=== PATIENT | female | born 2005 | race Caucasian/White ===

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

== ENCOUNTER 2025-07-16 13:41 | Emergency (ER) | payer BC, SELFPAY ==
--- OUTSIDE RECORDS SUMMARY | 2025-07-16 13:49 | XMS_ITS | Encounter Summary ---
Author Organization [facility] Address [address] [facility] [place] [address] Care Team Providers Care Seaman Officer Name Role Phone Gretta Roque MD Primary Care Provider [phone] Marce Robert MD Primary Care Provider [phone] Adali Robert LPN Primary Care Provider Marce Robert MD Primary Care Provider [phone] Reason for Visit * Reason Onset Date Comments MEDICATION REFILL 07/12/2014 Encounter Details Date Type Department Care Team (Late Contact Info) Description 07/12/2014 Refill [facility] - Diabetes [address] [address] Clark Watson, [facility] [place] [address] MEDICATION REFILL Social History Tobacco Use Types Packs/Day Years Used Date Smoking Tobacco: Never Assessed Alcohol Use Standard Drinks/Week Comments No 0 (1 standard drink = 0.6 oz pur e alcohol) Comments Unknown Sex and Gender Information Value Date Recorded Sex Assigned at Not on file Legal Sex Female 7:33 AM SUBASSEMBLER Gender Identity Not on file Sexual Orientation Not on file documented as of this encounter Plan of Treatment Upcoming Encounters Date Type Department Care Team (Late Contact Info) Description 08/06/2025 1:40 PM SUBASSEMBLER Office Visit [facility] - Endocrinology [address] [place] [address], [place] [phone] Faith Wallace MD [address] [place] [address] [address] [facility] [place] [address] documented as of this encounter Visit Diagnoses Not on filedocumented in this encounter Care Teams Seaman Officer Relationship Specialty Start Date End Date Gretta Roque MD [address] [facility] [address] [place] [phone] PCP - General Pediatrics 01/30/14 09/22/17 Marce Robert MD [address] [facility] [address] [place] [address] PCP - General Pediatrics 09/23/17 01/11/18 Adali Robert LPN [address] [place] [address] PCP - General 01/12/18 04/17/18 Marce Robert MD [address] [facility] [address] [place] [address] PCP - General 04/18/18 documented as of this encounter
--- OUTSIDE RECORDS SUMMARY | 2025-07-16 13:49 | XMS_ITS | Encounter Summary ---
Author Organization [facility] Address [address] [place] [address] Care Team Providers Care Bending Press Operator Name Role Phone Marce Robert MD Primary Care Provider [phone] Encounter Details Date Type Department Care Team (Late st Contact Info) Description 04/21/2019 Telephone [facility] Pediatrics - Diabetes [address] [address] Clark Watson, EXECUTIVE SECRETARY-JUNIOR PROJECT MANAGER 1 [place] [phone] Social History Tobacco Use Types Packs/Day Years Used Date Smoking Tobacco: Passive Smo ke Exposure - Never Smoker Smokeless Tobacco: Never Alcohol Use Standard Drinks/Week Comments No 0 (1 standard drink = 0.6 oz pur e alcohol) Comments No Sex and Gender Information Value Date Recorded Sex Assigned at Not on file Legal Sex Female 7:33 AM LUMBER DRIVER Gender Identity Not on file Sexual Orientation Not on file documented as of this encounter Functional Status * Is person deaf or have serious hearing difficulty? Answer Date of Assessment Author No 01/03/2015 4:15 PM Marshall Mcneal RN * Is person blind or have serious difficulty seeing? Answer Date of Assessment Author No 01/03/2015 4:15 PM Marshall Mcneal RN * Does person have serious difficulty walking/climbing stairs? Answer Date of Assessment Author No 01/03/2015 4:15 PM CDT Marshall Beach RN * Does person have difficulty dressing/bathing? Answer Date of Assessment Author No 01/03/2015 4:15 PM CDT [place] RN * Does person have difficulty doing errands alone? Answer Date of Assessment Author No 01/03/2015 4:15 PM CDT [place] RN documented as of this encounter Mental Status * Does person have difficulty concentrating/remembering/making decisions? Answer Entry Date Author No 01/03/2015 4:15 PM CDT [place] RN documented in this encounter Miscellaneous Notes * Telephone Encounter - Lissette Hoyt RN - 04/21/2019 12:07 PM CDT School letter sent. documented in this encounter Plan of Treatment Upcoming Encounters Date Type Department Care Team (Late st Contact Info) Description 08/06/2025 1:40 PM LUMBER DRIVER [facility] Endocrinology [address] [place] [address], [place] [address] Faith Wallace MD [address] [place] [address] [place] [phone] documented as of this encounter Visit Diagnoses Not on filedocumented in this encounter Care Teams Bending Press Operator Relationship Specialty Start Date End Date Marce Robert MD [address] [facility] [address] [place] [address] PCP - General 04/18/18 documented as of this encounter
--- OUTSIDE RECORDS SUMMARY | 2025-07-16 13:49 | XMS_ITS | Encounter Summary ---
Author Organization [facility] Address [address] [facility] [address] Care Team Providers Care Career Development Consultant Name Role Phone Marce Robert MD Primary Care Provider [phone] Encounter Details Date Type Department Care Team (Late st Contact Info) Description 07/13/2018 Telephone [facility] Pediatrics - Diabetes [address] [address] Telma Acevedo RN Social History Tobacco Use Types Packs/Day Years Used Date Smoking Tobacco: Passive Smo ke Exposure - Never Smoker Smokeless Tobacco: Never Alcohol Use Standard Drinks/Week Comments No 0 (1 standard drink = 0.6 oz pur e alcohol) Comments No Sex and Gender Information Value Date Recorded Sex Assigned at Not on file Legal Sex Female 7:33 AM TRACK LAYER Gender Identity Not on file Sexual Orientation [...] Marshall Mcneal RN * Does person have difficulty dressing/bathing? Answer Date of Assessment Author No 01/03/2015 4:15 PM Marshall Mcneal RN * Does person have difficulty doing errands alone? Answer Date of Assessment Author No 01/03/2015 4:15 PM Marshall Mcneal RN documented as of this encounter Mental Status * Does person have difficulty concentrating/remembering/making decisions? Answer Entry Date Author No 01/03/2015 4:15 PM Marshall Mcneal RN documented in this encounter Plan of Treatment Upcoming Encounters Date Type Department Care Team (Late st Contact Info) Description 08/06/2025 1:40 PM TRACK LAYER Office Visit [facility] - Endocrinology [address] [place] [address], [place] [address] Faith Wallace MD [address] [place] [address] [place] [address] documented as of this encounter Procedures Procedure Name Priority Date/Time Associated Diagnosis Comments HEMOGLOBIN A1C Routine 07/16/2018 11:20 AM TRACK LAYER Type 1 diabetes mellitus without complication documented in this encounter Results * (ABNORMAL) HEMOGLOBIN A1C - Performed by LAB (07/16/2018 11:20 AM TRACK LAYER) Hemoglobin A1c 9.0(H) <5.7 % of total Hgb [facility] Comment: For someone without known diabetes, a hemoglobin A1c value of 6.5% or greater indicates that they may have diabetes and this should be confirmed with a follow-up test. For someone with known diabetes, a value <7% indicates that their diabetes is well controlled and a value greater than or equal to 7% indicates suboptimal control. A1c targets should be individualized based on duration of diabetes, age, comorbid conditions, and other considerations. Currently, no consensus exists regarding use of hemoglobin A1c for diagnosis of diabetes for children. Test Performed at: [facility] [id number] [place] [address] MARLENE HERNÁNDEZ DO,MPH Blood BLOOD SPECIMEN / Unknown 07/16/2018 11:20 AM TRACK LAYER 07/16/2018 11:21 AM TRACK LAYER Torrey Washington MD LAB - CHEMISTRY ORDERABLES F inal Result [facility] [address] [place] [address] documented in this encounter Visit Diagnoses Diagnosis Type 1 diabetes mellitus without complication (HCC)- Primary Type I (juvenile type) diabetes mellitus without mention of complication, not stated as uncontrolled documented in this encounter Care Teams Career Development Consultant Relationship Specialty Start Date End Date Marce Robert MD [address] [facility] [address] [place] [address] PCP - General 04/18/18 documented as of this encounter
--- OUTSIDE RECORDS SUMMARY | 2025-07-16 13:50 | XMS_ITS | Encounter Summary ---
Author Organization [facility] Address [address] [facility] [place] [address] Care Team Providers Care Interlocking Pavement Installer Name Role Phone Gretta Roque MD Primary Care Provider [phone] Marce Robert MD Primary Care Provider [phone] Adali Robert LPN Primary Care Provider [phone] Marce Robert MD Primary Care Provider [phone] Reason for Visit * Reason Onset Date Comments MEDICATION REFILL 04/10/2015 Encounter Details Date Type Department Care Team (Late st Contact Info) Description 04/10/2015 Refill [facility] - Diabetes [address] [place] [address] Clark Watson APRN-REACTOR OPERATOR 1 [place] [address] MEDICATION REFILL Social History Tobacco Use Types Packs/Day Years Used Date Smoking Tobacco: Passive Smo ke Exposure - Never Smoker Alcohol Use Standard Drinks/Week Comments No 0 (1 standard drink = 0.6 oz pur e alcohol) Comments No Sex and Gender Information Value Date Recorded Sex Assigned at Not on file Legal Sex Female 7:33 AM CASH ACCOUNTING CLERK Gender Identity Not on file Sexual Orientation [...] st Contact Info) Description 08/06/2025 1:40 PM CASH ACCOUNTING CLERK Office Visit [facility] - Endocrinology [address] [place] [address], [place] [phone] Faith Wallace MD [address] [place] [phone] documented as of this encounter Visit Diagnoses Not on filedocumented in this encounter Care Teams Interlocking Pavement Installer Relationship Specialty Start Date End Date Gretta Roque MD [address] [place] [address] [place] [phone] PCP - General Pediatrics 01/30/14 09/22/17 Marce Robert MD [address] [facility] [address] [place] [address] PCP - General Pediatrics 09/23/17 01/11/18 Adali Robert LPN [address] [place] [address] PCP - General 01/12/18 04/17/18 Marce Robert MD [address] [facility] [address] [place] [address] PCP - General 04/18/18 documented as of this encounter
--- OUTSIDE RECORDS SUMMARY | 2025-07-16 13:50 | XMS_ITS | Encounter Summary ---
Author Organization [facility] Address [address] [facility] [place] [address] Care Team Providers Care Information Clerk Brokerage Name Role Phone Marce Robert MD Primary Care Provider [phone] Encounter Details Date Type Department Care Team (Late st Contact Info) Description 11/09/2023 Telephone [facility] Pediatrics - Diabetes [address] [address] Lizzy Leach Social History Tobacco Use Types Packs/Day Years Used Date Smoking Tobacco: Never Passive Smoke Exposure: Yes Smokeless Tobacco: Never Alcohol Use Standard Drinks/Week Comments No 0 (1 standard drink = 0.6 oz pur e alcohol) PHQ-2 Answer Date Recorded Patient Health Questionnaire-2 Score 4 07/23/2020 Comments No Sex and Gender Information Value Date Recorded Sex Assigned at Not on file Legal Sex Female 7:33 AM ELECTION JUDGE Gender Identity Not on file Sexual Orientation [...] Marshall Mcneal RN documented in this encounter Miscellaneous Notes * Telephone Encounter - Juliet Still RN - 11/09/2023 11:36 AM ELECTION JUDGE They called to verify prescription for lantus for pens or vial. Verfied that the Prescription had been requested for a vial to use to dose for insulin pump malfunction. TION JUDGE TION JUDGE documented in this encounter Plan of Treatment Upcoming Encounters Date Type Department Care Team (Late st Contact Info) Description 08/06/2025 1:40 PM ELECTION JUDGE Office Visit [facility] - Endocrinology [address] [place] [address], [place] [address] Faith Wallace MD [address] [place] [address] [place] [phone] documented as of this encounter Visit Diagnoses Not on filedocumented in this encounter Care Teams Information Clerk Brokerage Relationship Specialty Start Date End Date Marce Robert MD [address] [facility] [address] [place] [address] PCP - General 04/18/18 documented as of this encounter
--- OUTSIDE RECORDS SUMMARY | 2025-07-16 13:50 | XMS_ITS | Encounter Summary ---
Author Organization [facility] Address [address] [facility] [place] [address] Care Team Providers Care Ship Design Teacher Name Role Phone Marce Robert MD Primary Care Provider [phone] Reason for Visit * Reason Comments Refill Request Encounter Details Date Type Department Care Team (Late st Contact Info) Description 07/09/2025 Refill [facility] Pediatrics - Endocrinology [address] [place] [address] Alex Hung MD [facility] [place] [address] Refill Request Social History Tobacco Use Types Packs/Day Years [...] on file Legal Sex Female 7:33 AM INSPECTOR AND HAND PACKAGER Gender Identity Not on file Sexual Orientation [...] st Contact Info) Description 08/06/2025 1:40 PM INSPECTOR AND HAND PACKAGER Office Visit [facility] - Endocrinology [address] [place] [address], [place] [address] Faith Wallace MD [address] [place] [address] [place] [address] documented as of this encounter Visit Diagnoses Diagnosis Controlled diabetes mellitus type 1 without complications (HCC) documented in this encounter Care Teams Ship Design Teacher Relationship Specialty Start Date End Date Marce Robert MD [address] [facility] [address] [place] [address] PCP - General 04/18/18 documented as of this encounter
--- OUTSIDE RECORDS SUMMARY | 2025-07-16 13:50 | XMS_ITS | Encounter Summary ---
Author Organization [facility] Address [address] [facility] [place] [address] Care Team Providers Care It Solutions Architect Name Role Phone Gretta Roque MD Primary Care Provider Marce Robert MD Primary Care Provider [phone] Adali Robert LPN Primary Care Provider [phone] Marce Robert MD Primary Care Provider [phone] Encounter Details Date Type Department Care Team (Late st Contact Info) Description 03/30/2017 Telephone [facility] Pediatrics - Diabetes [address] [address] Torrey Washington MD [address] [place] [phone] Social History Tobacco Use Types Packs/Day Years Used Date Smoking Tobacco: Passive Smo ke Exposure - Never Smoker Alcohol Use Standard Drinks/Week Comments No 0 (1 standard drink = 0.6 oz pur e alcohol) Comments No Sex and Gender Information Value Date Recorded Sex Assigned at Not on file Legal Sex Female 7:33 AM PLACEMENT SECRETARY Gender Identity Not on file Sexual Orientation [...] st Contact Info) Description 08/06/2025 1:40 PM PLACEMENT SECRETARY Office Visit [facility] - Endocrinology [address] [place] [address], [place] [phone] Faith Wallace MD [address] [place] [address] [place] [phone] documented as of this encounter Visit Diagnoses Not on filedocumented in this encounter Care Teams It Solutions Architect Relationship Specialty Start Date End Date Gretta Roque MD [address] [place] [address] [place] [phone] PCP - General Pediatrics 01/30/14 09/22/17 Marce Robert MD [address] [facility] [address] [place] [address] PCP - General Pediatrics 09/23/17 01/11/18 Adali Robert LPN [address] [place] [address] PCP - General 01/12/18 04/17/18 Marce Robert MD [address] [facility] [address] [place] [address] PCP - General 04/18/18 documented as of this encounter
--- OUTSIDE RECORDS SUMMARY | 2025-07-16 13:50 | XMS_ITS | Encounter Summary ---
Author Organization [facility] Address [address] [facility] [place] [address] Care Team Providers Care Digital Advertising Specialist Name Role Phone Marce Robert MD Primary Care Provider [phone] Encounter Details Date Type Department Care Team (Late st Contact Info) Description 10/16/2020 Telephone [facility] Pediatrics - Endocrinology [facility] [place] [address] Clark Watson, BACKBREAKER-HAIR COLORIST 1 [place] [phone] Social History Tobacco Use Types Packs/Day Years [...] on file Legal Sex Female 7:33 AM CLINICAL DENTAL TECHNICIAN Gender Identity Not on file Sexual Orientation [...] of Assessment Author No 01/03/2015 4:15 PM WILLT [place] RN * Does person have difficulty doing errands alone? Answer Date of Assessment Author No 01/03/2015 4:15 PM WILLT [place] RN documented as of this encounter Mental Status * Does person have difficulty concentrating/remembering/making decisions? Answer Entry Date Author No 01/03/2015 4:15 PM WILLT [place] RN documented in this encounter Miscellaneous Notes * Telephone Encounter - Lissette Hoyt RN - 10/16/2020 2:40 PM CST Received a form stating a PA is needed for her Dexcom. I contacted [facility] directly at [phone]. They are faxing over the new form that needs to be completed. ICAL DENTAL TECHNICIAN documented in this encounter Plan of Treatment Upcoming Encounters Date Type Department Care Team (Late st Contact Info) Description 08/06/2025 1:40 PM CLINICAL DENTAL TECHNICIAN Office Visit [facility] - Endocrinology [address] [place] [address], [place] [address] Faith Wallace MD [address] [place] [address] [address] [facility] [place] [phone] documented as of this encounter Visit Diagnoses Not on filedocumented in this encounter Care Teams Digital Advertising Specialist Relationship Specialty Start Date End Date Marce Robert MD [address] [facility] [address] [place] [address] PCP - General 04/18/18 documented as of this encounter
--- OUTSIDE RECORDS SUMMARY | 2025-07-16 13:50 | XMS_ITS | Encounter Summary ---
Author Organization [facility] Address [address] [facility] [place] [address] Care Team Providers Care Jar Capper Name Role Phone Marce Robert MD Primary Care Provider [phone] Reason for Visit * Reason Onset Date Comments Letter for School or Work 08/08/2019 Encounter Details Date Type Department Care Team (Late st Contact Info) Description 08/08/2019 Telephone [facility] Pediatrics - Diabetes [address] [address] Clark Watson APRN-[address] [address] Letter for School or Work Social History Tobacco Use Types Packs/Day Years Used Date Smoking Tobacco: Passive Smo ke Exposure - Never Smoker Smokeless Tobacco: Never Alcohol Use Standard Drinks/Week Comments No 0 (1 standard drink = 0.6 oz pur e alcohol) Comments No Sex and Gender Information Value Date Recorded Sex Assigned at Not on file Legal Sex Female 7:33 AM APPRAISER ART Gender Identity Not on file Sexual Orientation Not on file documented as of this encounter Functional Status * Is person deaf or have serious hearing difficulty? Answer Date of Assessment Author No 01/03/2015 4:15 PM Marshall Mcneal RN * Is person blind or have serious difficulty seeing? Answer Date of Assessment Author No 01/03/2015 4:15 PM CDT Yong, Marshall R, RN * Does person have serious difficulty [...] encounter Miscellaneous Notes * Telephone Encounter - Drew Nieves RN - 08/08/2019 10:44 AM CST I returned mom's call, she left a message asking for careplan indicating 1:5 at lunch, zohra of 1 q 50>150 and bathroom breaks and water bottle ad georgie. I called and spoke with mom, as last note indicated lunch was changed to 1:4. Mom said she had lows with that dose so they changed it back. She received a lunch long-term for gong to the bathroom last week. Advised have her use discretion and don't abuse it to get out of class, but it's appropriate to have ad georgie breaks so I will add it to theletter, along with the water bottle. AISER ART documented in this encounter Plan of Treatment Upcoming Encounters Date Type Department Care Team (Late st Contact Info) Description 08/06/2025 1:40 PM APPRAISER ART Office Visit [facility] - Endocrinology [address] [place] [address], [place] [address] Faith Wallace MD [address] [place] [address] [place] [address] documented as of this encounter Visit Diagnoses Not on filedocumented in this encounter Care Teams Jar Capper Relationship Specialty Start Date End Date Marce Robert MD [address] [facility] [place] [address] PCP - General 04/18/18 documented as of this encounter
--- OUTSIDE RECORDS SUMMARY | 2025-07-16 13:50 | XMS_ITS | Encounter Summary ---
Author Organization [facility] Address [address] [place] [address] Care Team Providers Care Grip Assembler Name Role Phone Gretta Roque MD Primary Care Provider [phone] Marce Robert MD Primary Care Provider [phone] Adali Robert LPN Primary Care Provider [phone] Marce Robert MD Primary Care Provider [phone] Reason for Visit * Reason Onset Date Comments Request Lab Order 05/15/2015 Please send la b orders for appt on 05/20 to [facility] in [place]. Encounter Details Date Type Department Care Team (Late st Contact Info) Description 05/15/2015 Telephone [facility] - Diabetes [address] [place] [place] [address] Clark Watson, KEVIN-APPRENTICE ELECTRICIAN 1 [place] [address] Request Lab Order (Please send lab orders for appt on 05/20 to [facility] in [place]. ) Social History Tobacco Use Types Packs/Day Years Used Date Smoking Tobacco: Passive Smo ke Exposure - Never Smoker Alcohol Use Standard Drinks/Week Comments No 0 (1 standard drink = 0.6 oz pur e alcohol) Comments No Sex and Gender Information Value Date Recorded Sex Assigned at Not on file Legal Sex Female 7:33 AM SOFTWARE QUALITY ENGINEER Gender Identity Not on file Sexual Orientation [...] st Contact Info) Description 08/06/2025 1:40 PM SOFTWARE QUALITY ENGINEER Office Visit [facility] - Endocrinology [address] [place] [address], [place] [address] Faith Wallace MD [address] [place] [address] [place] [address] documented as of this encounter Visit Diagnoses Not on filedocumented in this encounter Care Teams Grip Assembler Relationship Specialty Start Date End Date Gretta Roque MD [address] [facility] [address] [place] [phone] PCP - General Pediatrics 01/30/14 09/22/17 Marce Robert MD [address] [facility] 159 [place] [address] PCP - General Pediatrics 09/23/17 01/11/18 Adali Robert LPN [address] [place] [address] PCP - General 01/12/18 04/17/18 Marce Robert MD [address] [facility] 159 [place] [address] PCP - General 04/18/18 documented as of this encounter
--- OUTSIDE RECORDS SUMMARY | 2025-07-16 13:50 | XMS_ITS | Encounter Summary ---
Author Organization [facility] Address [address] [place] [address] Care Team Providers Care Captain Waiter/Waitress Name Role Phone Gretta Roque MD Primary Care Provider [phone] Marce Robert MD Primary Care Provider [phone] Adali Robert LPN Primary Care Provider [phone] Marce Robert MD Primary Care Provider [phone] Reason for Visit * Reason Onset Date Comments MEDICATION REFILL 03/12/2017 Encounter Details Date Type Department Care Team (Late st Contact Info) Description 03/12/2017 Refill [facility] Pediatrics - Endocrinology [address] [place] [address] Torrey Washington MD [address] [place] [address] MEDICATION REFILL Social History Tobacco Use Types Packs/Day Years Used Date Smoking Tobacco: Passive Smo ke Exposure - Never Smoker Alcohol Use Standard Drinks/Week Comments No 0 (1 standard drink = 0.6 oz pur e alcohol) Comments No Sex and Gender Information Value Date Recorded Sex Assigned at Not on file Legal Sex Female 7:33 AM CUSTOMER ACCOUNT MANAGER Gender Identity Not on file Sexual Orientation [...] [place] RN * Does person have serious difficulty [...] st Contact Info) Description 08/06/2025 1:40 PM CUSTOMER ACCOUNT MANAGER Office Visit [facility] - Endocrinology [address] [place] [address], [place] [address] Faith Wallace MD [address] [place] [phone] documented as of this encounter Visit Diagnoses Diagnosis Controlled diabetes mellitus type 1 without complications (HCC) documented in this encounter Care Teams Captain Waiter/Waitress Relationship Specialty Start Date End Date Gretta Roque MD 2 [facility] [address] [place] [address] PCP - General Pediatrics 01/30/14 09/22/17 Marce Robert MD [address] [facility] [address] [place] [address] PCP - General Pediatrics 09/23/17 01/11/18 Adali Robert LPN [address] [place] [address] PCP - General 01/12/18 04/17/18 Marce Robert MD [address] [facility] [address] [place] [address] PCP - General 04/18/18 documented as of this encounter
--- OUTSIDE RECORDS SUMMARY | 2025-07-16 13:50 | XMS_ITS | Encounter Summary ---
Author Organization [facility] Address [address] [facility] [place] [address] Care Team Providers Care Engine Lathe Tender Name Role Phone Marce Robert MD Primary Care Provider [phone] Encounter Details Date Type Department Care Team (Late st Contact Info) Description 04/22/2020 Telephone [facility] Pediatrics - Endocrinology [facility] [place] [address] Clark Watson, MAXILLOFACIAL PROSTHODONTIST-ATLASSIAN ADMINISTRATOR 1 [place] [phone] Social History Tobacco Use Types Packs/Day Years Used Date Smoking Tobacco: Passive Smo ke Exposure - Never Smoker Smokeless Tobacco: Never Alcohol Use Standard Drinks/Week Comments No 0 (1 standard drink = 0.6 oz pur e alcohol) Comments No Sex and Gender Information Value Date Recorded Sex Assigned at Not on file Legal Sex Female 7:33 AM MANAGER CONSUMER Gender Identity Not on file Sexual Orientation Not on file COVID-19 Exposure Response Date Recorded In the last month, have you been in contact with someone who was confirmed or suspected to have Coronavirus / COVID-19? No / Unsure 04/22/2020 9:19 AM CDT documented as of this encounter Functional Status * Is person deaf or have serious hearing difficulty? Answer Date of Assessment Author No 01/03/2015 4:15 PM CDT [place] RN * Is person blind or have [...] st Contact Info) Description 08/06/2025 1:40 PM MANAGER CONSUMER Office Visit [facility] - Endocrinology [address] [place] [address], [place] [address] Faith Wallace MD [address] [place] [address] [address] [place] [address] documented as of this encounter Visit Diagnoses Not on filedocumented in this encounter Care Teams Engine Lathe Tender Relationship Specialty Start Date End Date Marce Robert MD [address] [facility] 159 [place] [address] PCP - General 04/18/18 documented as of this encounter
--- OUTSIDE RECORDS SUMMARY | 2025-07-16 13:50 | XMS_ITS | Encounter Summary ---
Author Organization [facility] Address [address] [place] [address] Care Team Providers Care Dental Laboratory Technician Apprentice Name Role Phone Marce Robert MD Primary Care Provider [phone] Reason for Visit * Reason Onset Date Comments MEDICATION REFILL 01/15/2022 Encounter Details Date Type Department Care Team (Late st Contact Info) Description 01/15/2022 Refill [facility] Pediatrics - Diabetes [address] [phone] Alex Hung MD [address] [place] [address] MEDICATION REFILL Social History Tobacco Use Types [...] on file Legal Sex Female 7:33 AM KNITTER HAND Gender Identity Not on file Sexual Orientation Not on file COVID-19 Exposure Response Date Recorded In the last 10 days, have yo u been in contact with someone who was confirmed or suspected to have Coronavirus/COVID-19? No / Unsure 12/22/2021 1:01 PM CDT documented as of this encounter Functional [...] st Contact Info) Description 08/06/2025 1:40 PM KNITTER HAND Office Visit [facility] - Endocrinology [address] [place] [address], [place] [address] Faith Wallace MD [address] [place] [address] [place] [address] documented as of this encounter Visit Diagnoses Not on filedocumented in this encounter Care Teams Dental Laboratory Technician Apprentice Relationship Specialty Start Date End Date Marce Robert MD [address] [facility] [place] [address] PCP - General 04/18/18 documented as of this encounter
--- OUTSIDE RECORDS SUMMARY | 2025-07-16 13:50 | XMS_ITS | Encounter Summary ---
Author Organization [facility] Address [address] [facility] [place] [address] Care Team Providers Care Science Writer Name Role Phone Marce Robert MD Primary Care Provider [phone] Encounter Details Date Type Department Care Team (Late st Contact Info) Description 02/05/2022 Telephone [facility] Pediatrics - Diabetes [address] [address] Alex Hung MD [address] [place] [phone] Social History Tobacco Use Types Packs/Day Years [...] on file Legal Sex Female 7:33 AM BLANKET WINDER OPERATOR Gender Identity Not on file Sexual Orientation [...] encounter Miscellaneous Notes * Telephone Encounter - Giana Chirinos RN - 02/05/2022 9:35 AM CDT Images from the original note were not included. Diabetes Sick Call Patient: Betsey Camejo Date: 02/05/2022 Current Blood Glucose: HIGH per dexcom, extreme high blood sugar >600 per meter Current Ketone result: large Last insulin given: Novolog: Dose 28 units for correction and breakfast Time 0750 Symptoms: tired Recent Illness: has an infection on her arm so Urgent Care started her on steroids, prednisone on Wednesday afternoon (see Dexcom below) Plan: Talked with NANCIE Arizmendi to review plan Push sugar free fluid. Recheck blood glucose and urine ketones in two hours at 1150. Change pump site now and administer 9 units at 0950. Miscellaneous: Dad called and left voicemail to review bgs since started Tandem pump yesterday and mentioned she has had high blood sugars and ketones. Called dad back right away to get an update. Dad is at work right now, Betsey is at home (mom is sleeping since she works scene shifter). Johanna three-way called Betsey into the phone call. Was seen yesterday to start new pump, however dad states they started the pump on their own a week prior to the pump start since they already had been on a pump they felt comfortable starting. Dad did not call once they started their pump on their own. Had talked with TIM Kelly and TIM Russell from [facility] about them starting pump on their own. See Dexcom below. Having highs throughout the day and night since starting the steroids. No changesmade at this moment since large ketones. Instructed family to give the 9 units now with new pump site. In two hours to call us back and we will see what bgs and ketones are at that time and can look at making dose adjustments. INSULIN PUMP Tandem T-Slim BASAL RATES TIME Units/hr 0000 0.9 TOTAL Basal for 24 hours CARB RATIO TIME 1 unit per____grams of carbohydrates 0000 9 0400 5 0600 5 1100 9 1600 10 2200 10 SENSITIVITY TIME 1 unit of insulin lowers BG mg/dL 0000 50 TARGET TIME Target Blood Glucose 0000 110 documented in this encounter Plan of Treatment Upcoming Encounters Date Type Department Care Team (Late st Contact Info) Description 08/06/2025 1:40 PM BLANKET WINDER OPERATOR Office Visit [facility] - Endocrinology [address] [place] [address], [place] [phone] Faith Wallace MD [address] [place] [address] [place] [phone] documented as of this encounter Visit Diagnoses Not on filedocumented in this encounter Care Teams Science Writer Relationship Specialty Start Date End Date Marce Robert MD [address] [facility] [address] [place] [address] PCP - General 04/18/18 documented as of this encounter
--- OUTSIDE RECORDS SUMMARY | 2025-07-16 13:50 | XMS_ITS | Encounter Summary ---
Author Organization [facility] Address [address] [place] [address] Care Team Providers Care Payroll Administrator Name Role Phone Gretta Roque MD Primary Care Provider [phone] Gretta Roque MD Primary Care Provider [phone] Marce Robert MD Primary Care Provider [phone] Adali Robert DISPLAY MAKER Primary Care Provider [phone] Marce Robert MD Primary Care Provider [phone] Reason for Visit * Reason Onset Date Comments Update 03/30/2012 Cannot get in co ntact with patients mother, will try a few more times, then place RX on hold Encounter Details Date Type Department Care Team (Late st Contact Info) Description 03/30/2012 Telephone [facility] Pediatrics - Endocrinology [address] [facility] [place] [address] [place] [address] [facility] [address] [place] [address] Update (Cannot get in contact with patients mother, will try a few more times, then place RX on hold) Social History Tobacco Use Types Packs/Day Years Used Date Smoking Tobacco: Never Assessed Alcohol Use Standard Drinks/Week Comments No 0 (1 standard drink = 0.6 oz pur e alcohol) Comments Unknown Sex and Gender Information Value Date Recorded Sex Assigned at Not on file Legal Sex Female 7:33 AM BARNWORKER GROOM Gender Identity Not on file Sexual Orientation Not on file documented as of this encounter Plan of Treatment Upcoming Encounters Date Type Department Care Team (Late st Contact Info) Description 08/06/2025 1:40 PM BARNWORKER GROOM Office Visit [facility] - Endocrinology [address] [place] [address], [place] [address] Faith Wallace MD [address] [place] [address] [place] [phone] documented as of this encounter Visit Diagnoses Not on filedocumented in this encounter Care Teams Payroll Administrator Relationship Specialty Start Date End Date Gretta Roque MD [address] [address] PCP - General 03/06/10 01/29/14 Gretta Roque MD [address] [address] PCP - General Pediatrics 01/30/14 09/22/17 Marce Robert MD [address] [facility] [address] [place] [address] PCP - General Pediatrics 09/23/17 01/11/18 Adali Robetr LPN [address] [place] [address] PCP - General 01/12/18 04/17/18 Marce Robert MD [address] [facility] [address] [place] [address] PCP - General 04/18/18 documented as of this encounter
--- OUTSIDE RECORDS SUMMARY | 2025-07-16 13:50 | XMS_ITS | Encounter Summary ---
Author Organization [facility] Address [address] [facility] [place] [address] Care Team Providers Care Associate Dean Of Students Name Role Phone Marce Robert MD Primary Care Provider [phone] Encounter Details Date Type Department Care Team (Late st Contact Info) Description 01/08/2020 Telephone [facility] Pediatrics - Diabetes [address] [address] Clark Watson, ROAD SUPERVISOR OF ENGINES-DELIVERY SUPERVISOR 1 [place] [phone] Social History Tobacco Use Types Packs/Day Years Used Date Smoking Tobacco: Passive Smo ke Exposure - Never Smoker Smokeless Tobacco: Never Alcohol Use Standard Drinks/Week Comments No 0 (1 standard drink = 0.6 oz pur e alcohol) Comments No Sex and Gender Information Value Date Recorded Sex Assigned at Not on file Legal Sex Female 7:33 AM MACHINIST SUPERVISOR OUTSIDE Gender Identity Not on file Sexual Orientation [...] st Contact Info) Description 08/06/2025 1:40 PM MACHINIST SUPERVISOR OUTSIDE Office Visit [facility] - Endocrinology [address] [place] [address], [place] [address] Faith Wallace MD [address] [place] [address] [place] [address] Scheduled Orders Name Type Priority Associated Diagnoses Orde r Schedule HEMOGLOBIN A1C - Performed by LAB Lab Routine Type 1 diabetes mellitus without complication Ordered: 01/08/2020 documented as of this encounter Visit Diagnoses Diagnosis Type 1 diabetes mellitus without complication (HCC)- Primary Type I (juvenile type) diabetes mellitus without mention of complication, not stated as uncontrolled documented in this encounter Care Teams Associate Dean Of Students Relationship Specialty Start Date End Date Marce Robert MD [address] [facility] [address] [place] [address] PCP - General 04/18/18 documented as of this encounter
--- OUTSIDE RECORDS SUMMARY | 2025-07-16 13:50 | XMS_ITS | Encounter Summary ---
Author Organization [facility] Address [address] [facility] [place] [address] Care Team Providers Care Intelligence Manager Name Role Phone Marce Robert MD Primary Care Provider [phone] Encounter Details Date Type Department Care Team (Late st Contact Info) Description 10/22/2020 Telephone [facility] Pediatrics - Diabetes [address] [address] Clark Watson, GLOBAL CMO-[place] [phone] Social History Tobacco Use Types Packs/Day Years [...] on file Legal Sex Female 7:33 AM TELEVISION REPAIR TEACHER Gender Identity Not on file Sexual Orientation [...] encounter Miscellaneous Notes * Telephone Encounter - Alycia Webb RN - 10/22/2020 10:47 AM TELEVISION REPAIR TEACHER Received approval for Dexcom G6 from [facility] to send future rx to local pharmacy due to copay being less at local pharmacy vs mail order. VISION REPAIR TEACHER documented in this encounter Plan of Treatment Upcoming Encounters Date Type Department Care Team (Late st Contact Info) Description 08/06/2025 1:40 PM TELEVISION REPAIR TEACHER Office Visit [facility] - Endocrinology [address] [place] [address], [place] [address] Faith Wallace MD [address] [place] [address] [address] DIV [place] [address] documented as of this encounter Visit Diagnoses Not on filedocumented in this encounter Care Teams Intelligence Manager Relationship Specialty Start Date End Date Marce Robert MD [address] [facility] [address] [place] [address] PCP - General 04/18/18 documented as of this encounter
--- OUTSIDE RECORDS SUMMARY | 2025-07-16 13:50 | XMS_ITS | Encounter Summary ---
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 Push sugar free fluid. Recheck blood glucose and urine ketones in two hours. Miscellaneous: Dad called stating that blood sugar was still elevated and Betsey continues to have moderate ketones. Dad agrees with our current plan and will call exchange if Betsey continues to have moderate to large ketones in 2 hours. Dad will also call if Betsey begins to develop other symptoms such as nausea or vomiting. * Telephone Encounter - Giana Chirinos RN - 02/05/2022 12:00 PM CDT Images from the original note were not included. Diabetes Sick Call Patient: Betsey Camejo Date: 02/05/2022 Current Blood Glucose: >600 per finger poke Current Ketone result: moderate Last insulin given: Novolog: Dose 9 units Time 0950 Symptoms: states feeling ok, just tired Recent Illness: has an infection on her arm so Urgent Care started her on steroids, prednisone on Wednesday afternoon (see Dexcom below) Plan: Give 9 units now via pump, discussed with NANCIE Arizmendi. Push sugar free fluids. Recheck blood glucose and urine ketones in two hours. Call and hit option #1 if mod-large ketones in two hours or if vomiting occurs. Miscellaneous: dad called back to give an update. While on the phone, reviewed blood sugars. Betsey was started on the pump yesterday. See Dexcom below. Discussed with NANCIE Arizmendi about basal rate change and being on steroids. Per NANCIE Arizmendi adjusted basal rate from 0.9u/hr to 1.1u/hr. INSULIN PUMP Tandem T-Slim? BASAL RATES 02/04/2022?? 02/05/2022?? TIME Units/hr ?0000 0.9 1.1? TOTAL Basal for 24 hours ? CARB RATIO ? TIME 1 unit per____grams of carbohydrates ?? 0000 9 ?? 0400 5 ?? 0600 5 ?? 1100 9 ?? 1600 10 ?? 2200 10 ? SENSITIVITY ? TIME 1 unit of insulin lowers BG mg/dL ?? 0000 50 ? TARGET ? TIME Target Blood Glucose ?0000 110 ? documented in this encounter Plan of Treatment Upcoming Encounters Date Type Department Care Team (Late st Contact Info) Description 08/06/2025 1:40 PM BRAKE REPAIR MECHANIC Office Visit [facility] - Endocrinology [address] [place] [address], [place] [phone] Faith Wallace MD [address] [place] [address] [place] [address] documented as of this encounter Visit Diagnoses Not on filedocumented in this encounter Care Teams Batch Mixer Relationship Specialty Start Date End Date Marce Robert MD [address] [facility] [address] [place] [address] PCP - General 04/18/18 documented as of this encounter
--- OUTSIDE RECORDS SUMMARY | 2025-07-16 13:50 | XMS_ITS | Clinical Summary ---
Author Organization [facility] [employer] Address [address] [place] [address] Care Team Providers Care Compensation And Benefits Advisor Name Role Phone Marce Robert MD Primary Care Provider [phone] Source Comments [facility] [employer],non-owned Affiliates and Associated Physician Practices is amultiple site organization consisting of ambulatory clinics and hospital sitesin [place], [place], [place] and [place]. This disclosure is being madepursuant to the Care Everywhere program and may not contain all information available regarding this patient. Last updated 18.[facility] [employer] Allergies No known active allergies Medications * Be aware that medications may not be up to date on this document. Alwaysverify current medications with the patient. Alcohol Swabs PADSIndications:D iabetes type 1, controlled (HCC) Use. for fingersticks and injections. 900 Each 3 05/19/20 10 Active lancets (ONE TOUCH LANCETS) MISCIndications:D iabetes type 1, controlled (HCC) Use. for blood glucose monitoring 5-9 times/day. 800 Each 3 11/06/19 11 Active acetone,urine, (KETOSTIX) strip Use as needed for Other (Use when blood sugar greater than 300 or when ill). 50 Strip 11 04/04/20 13 Active etonogestrel (NEXPLANON) 68 MG implant 68 (sixty eight) mg by Subdermal route as directed Replaced, Jan, 2022 Active Insulin Syringe-Needle U-100 (BD INSULIN SYRINGE ULTRAFINE) 31G X 15/64 0.3 ML syringeIndication s:Controlled diabetes mellitus type 1 without complications (HCC) For use with daily Lantus injections 300 syringe 2 03/04/20 21 Active insulin pen needle (B-D UF III MINI PEN NEEDLES) 31G X 5 MM needleIndications :Controlled diabetes mellitus type 1 without complications (HCC) as needed To inject insulin 5-6 times daily 600 Each 3 12/23/19 22 Active Insulin Syringe-Needle U-100 (BD ULTRAFINE 31 G X 6 MM 0.5 ML) 31G X 15/64 0.5 ML syringe Used to administer Lantus daily 100 Each 3 01/16/20 22 Active atomoxetine (Strattera) 60 MG capsule Take 1 (one) capsule by mouth once daily 09/30/19 23 Active blood glucose (OneTouch Verio) test stripIndications: Controlled diabetes mellitus type 1 without complications (HCC) Use to test 5-9 times daily 200 strip 11 07/19/20 23 Active Blood Glucose Monitoring Suppl ([employer] NEXT EZ MONITOR) w/Device KITIndications:Ty pe 1 diabetes mellitus without complication (HCC) Use 1 Each as directed 1 Each 1 07/27/20 23 Active Glucagon, rDNA, (Glucagon Emergency) 1 MG KITIndications:Co ntrolled diabetes mellitus type 1 without complications (HCC) INJECT 1 MG INTRAMUSCULARLY NEEDED 2 Each 09/07/19 25 Active blood glucose ([employer] CONTOUR NEXT TEST) test stripIndications: Controlled diabetes mellitus type 1 without complications (HCC) Use to test blood sugar 0-4 times per day while using Dexcom as directed by provider 100 strip 5 10/30/19 25 Active Continuous Glucose Transmitter (Dexcom G6 Transmitter) MISCIndications:C ontrolled diabetes mellitus type 1 without complications (HCC) CHANGE EVERY 90 DAYS 1 Each 02/20/20 25 Active Continuous Glucose Sensor (Dexcom G6 Sensor) MISCIndications:C ontrolled diabetes mellitus type 1 without complications (HCC) USE 1 SENSOR EVERY 10 DAYS 9 Each 02/20/20 25 Active HumaLOG 100 UNIT/ML cartridgeIndicati ons:Controlled diabetes mellitus type 1 without complications (HCC) INJECT UP TO 80 UNITS DAILY IN INSULIN PUMP OR DIRECTED 75 mL 4 03/14/20 25 Active Active Problems Problem Noted Date Diagnosed Date Anxiety state 01/02/2019 Assessment & Plan (04/28/2019 5:02 PM CDT): . Absence epilepsy 01/02/2019 Assessment & Plan (04/28/2019 5:02 PM CDT): . Type 1 diabetes mellitus without complication Overview (06/06/2025): Diagnosed 01/28/2009 Insulin pump start 11/08/2009, [place] insulin pump 09/01/2024 nl eye exam IMO 06/06/2025 Assessment & Plan (10/31/2024 11:54 AM [facility] [employer] [place]): Diabetes mellitus, Type 1, duration: 15 year(s), complications: none; Glycemic control: good control, but most of insulin doses are corrective insulin doses; not consistently entering mealtime care intake; PHQ-9 (depression) screening: ND, mental health referral(s): no, already follows with psychiatry ; Recommended: enter mealtime care intake consistently at mealtimes; RD visit: no; RN/CDE visit: no; Counseled: may need to increase daytime target from 90 mg/dL to 100 mg/dL if problems with persistent hypoglycemia develop; transitioning to adult endo provider (may take several months); lab results, treatment options, and follow up plan; prescriptions refilled: yes; school letter provided: N\A; Schedule eye examination: no; rtc: 3 month(s) Orders Placed This Encounter TSH REFLEX FREE T4 Order Specific Question: Release to patient Answer: Immediate LIPID PROFILE Order Specific Question: Release to patient Answer: Immediate MICROALB/CREAT RATIO URINE RANDOM PANEL Order Specific Question: Release to patient Answer: Immediate HEMOGLOBIN A1C - POCT (IP) BEAKER Standing Status: Future Number of Occurrences: 1 Standing Expiration Date: 10/25/2025 Order Specific Question: Release to patient Answer: Immediate blood glucose ([employer] CONTOUR NEXT TEST) test strip Sig: Use to test blood sugar 0-4 times per day while using Dexcom as directed by provider Dispense: 100 strip Refill: 5 Continuous Glucose Sensor (Dexcom G6 Sensor) MISC Sig: Inject 1 device subcutaneously every 10 days Nine sensors Dispense: 9 Each Refill: 5 Continuous Glucose Transmitter (Dexcom G6 Transmitter) MISC Sig: Use 1 device as instructed Every 90 days Transmitter to use with dexcom sensor; replace every 90 days Dispense: 1 Each Refill: 1 HumaLOG 100 UNIT/ML cartridge Sig: INJECT UP TO 80 UNITS DAILY IN INSULIN PUMP OR DIRECTED Dispense: 75 mL Refill: 4 Inactivated Influenza Vaccine, Quadr. (Fluzone; Flulaval; Fluarix; Afluria Quadrivalent; 6mo+) 0.5 ML (IIV4) Sig: Inject 0.5 mL into muscle once for 1 dose Inactivated Influenza Vaccine, Triv. (Flulaval Trivalent; 6mo+) (IIV3) 0.5 mL Glucose sensor [Dexcom G 6] daily: yes Lantus 24 u daily for insulin pump malfunction Sick day correction: 1 u per 50 mg/dL over 150 mg/dL Follow up by telephone as needed to review interval blood glucose levels and adjust insulin dose Return visit in 3 month(s). Assessment & Plan (11/01/2023 5:50 PM COOKER PROCESS [place]ESE): Diabetes mellitus, Type 1, duration: 14 year(s), complications: none; Glycemic control: fair control, secondary to missed bolus insulin doses, but weight increased and total daily dose increased compared to last visit; PHQ-9 (depression) screening: nd, mental health referral(s): no, already follows with psychiatry; Recommended: no changes to insulin pump settings; no missed bolus insulin doses; discussed transitioning to adult endocrinology after high school graduation; RD visit: no; RN/CDE visit: no; Counseled: no missed bolus insulin doses; rotate insulin pump insertion sites to avoid areas of lipohypertrophy; lab results, treatment options and follow up plan; prescriptions refilled: yes; school letter provided: N\A; Schedule eye examination: no (last eye exam, Aug 27, 2023); rtc: 3 month(s) Orders Placed This Encounter MICROALB/CREAT RATIO URINE RANDOM PANEL Standing Status: Future Standing Expiration Date: 10/26/2024 Order Specific Question: Release to patient Answer: Immediate HEMOGLOBIN A1C - POCT (IP) BEAKER Standing Status: Future Number of Occurrences: 1 Standing Expiration Date: 10/26/2024 Order Specific Question: Release to patient Answer: Immediate HEMOGLOBIN A1C - POCT (IP) BEAKER Standing Status: Standing Number of Occurrences: 1 Order Specific Question: Release to patient Answer: Immediate HumaLOG 100 UNIT/ML cartridge Sig: INJECT UP TO 80 UNITS DAILY IN INSULIN PUMP OR DIRECTED Dispense: 75 mL Refill: 1 insulin glargine (Lantus/Semglee) 100 units/ml injection Sig: INJECT SUBCUTANEOUSLY 23 UNITS AT NIGHT OR DIRECTED WHEN OFF PUMP Dispense: 40 mL Refill: 1 Glucose sensor (Dexcom G6/G7 or Renu) daily: yes Lantus 23 u daily for insulin pump malfunction Follow up by telephone as needed to review interval blood glucose levels and adjust insulin dose Return visit in 3 months. Assessment & Plan (07/20/2023 12:38 PM [facility]OOK[facility] PROCESS [place]): Diabetes mellitus, Type 1, duration: 14 year(s), complications: none; Glycemic control: good control; but 12 lb, unintentional weight loss (? Appetite related); PHQ-9 (depression) screening: ND, mental health referral(s): no, already follows with mental health; Recommended: no changes to insulin pump settings; RD visit: no; RN/CDE visit: no; Counseled: wear/keep Medic alert identification with you at all times; transitioning to adult endocrinology after high school graduation, lab results, treatment options and follow up plan; prescriptions refilled: yes; school letter provided: N\A; Schedule eye examination: yes; rtc: 3 month(s) Orders Placed This Encounter MICROALB/CREAT RATIO URINE RANDOM PANEL Standing Status: Future Standing Expiration Date: 07/13/2024 Order Specific Question: Release to patient Answer: Immediate MICROALB/CREAT RATIO URINE RANDOM PANEL Order Specific Question: Release to patient Answer: Immediate HEMOGLOBIN A1C - POCT (IP) BEAKER Standing Status: Future Standing Expiration Date: 07/13/2024 Order Specific Question: Release to patient Answer: Immediate HumaLOG 100 UNIT/ML cartridge Sig: INJECT UP TO 80 UNITS DAILY IN INSULIN PUMP OR DIRECTED Dispense: 75 mL Refill: 1 Continuous Blood Gluc Sensor (Dexcom G6 Sensor) MISC Sig: Use 1 Each every 10 days Dispense: 3 Each Refill: 11 Continuous Blood Gluc Transmit (Dexcom G6 Transmitter) MISC Sig: Use 1 Each Every 90 days Dispense: 1 Each Refill: 3 blood glucose (OneTouch Verio) test strip Sig: Use to test 5-9 times daily Dispense: 200 strip Refill: 11 Glucose sensor (Dexcom G6 or Renu) daily: yes Lantus 27 u daily for insulin pump malfunction Follow up by telephone as needed to review interval blood glucose levels and adjust insulin dose Return visit in 3 months. Assessment & Plan (03/29/2023 5:11 PM CDT): Diabetes mellitus, Type 1, duration: 14 year(s), complications: none; Glycemic control: good control; insulin pump settings aggressive; PHQ-9 (depression) screening: ND, mental health referral(s): no, already sees psychiatry; Recommended: decrease basal insulin rate (midnight to 6 am) to 1.05 u per hour; increase target to 110 mg/dL all times; RD visit: no; RN/CDE visit: no; Counseled: insulin pump setting changes, insulin pump malfunction trouble shooting, driving; lab results; prescriptions refilled: yes; school letter provided: N\A; Schedule eye examination: yes; rtc: 3 month(s) Orders Placed This Encounter MICROALB/CREAT RATIO URINE RANDOM PANEL Please obtain spot urine for microalbumin/creatinine at local laboratory and fax results to Dr. Alex Hung at [phone]. Order Specific Question: Release to patient Answer: Immediate HEMOGLOBIN A1C - POCT (IP) VERNELL Standing Status: Future Number of Occurrences: 1 Standing Expiration Date: 03/23/2024 Order Specific Question: Release to patient Answer: Immediate HEMOGLOBIN A1C - POCT (IP) VERNELL Standing Status: Standing Number of Occurrences: 1 Order Specific Question: Release to patient Answer: Immediate HumaLOG 100 UNIT/ML cartridge Sig: INJECT UP TO 80 UNITS DAILY IN INSULIN PUMP OR DIRECTED Dispense: 75 mL Refill: 1 glucagon (Glucagen) injection Sig: Inject 1 (one) mg into muscle as needed Dispense: 2 Each Refill: 0 Glucose sensor (Dexcom G6 or Renu) daily: yes Lantus 26 u daily for insulin pump malfunction Change insulin pump target to 110 mg/dL at all times Change basal insulin to 1.05 u per hour (midnight to 6 am) Follow up by telephone as needed to review interval blood glucose levels and adjust insulin dose Return visit in 3 months. Assessment & Plan (12/22/2022 10:30 AM CDT): Diabetes mellitus, Type 1, duration: 13 year(s), complications: none; Glycemic control: good control; PHQ-9 (depression) screening: nd, mental health referral(s): no, sees psychiatrist q 3 months and therapist weekly; Recommended: no changes to insulin pump settings; RD visit: no; Counseled: driving/medic alert identification; lab results, treatment options, follow up plan, return instructions and discussion of mental health issues; prescriptions refilled: yes; school letter provided: N\A; Schedule eye examination: no, due in 2022; rtc: 3 month(s) Orders Placed This Encounter HEMOGLOBIN A1C - POCT (IP) BEAKER Standing Status: Future Number of Occurrences: 1 Standing Expiration Date: 12/16/2023 Order Specific Question: Release to patient Answer: Immediate Continuous Blood Gluc Transmit (Dexcom G6 Transmitter) MISC Sig: Use 1 Each Every 90 days Dispense: 1 Each Refill: 3 Continuous Blood Gluc Sensor (Dexcom G6 Sensor) MISC Sig: Use 1 Each every 10 days Dispense: 3 Each Refill: 11 HumaLOG 100 UNIT/ML cartridge Sig: INJECT UP TO 80 UNITS DAILY IN INSULIN PUMP OR DIRECTED Dispense: 75 mL Refill: 1 Glucose sensor (Dexcom G6 or Renu) daily: yes Lantus 23 u daily for insulin pump malfunction Follow up by telephone as needed to review interval blood glucose levels and adjust insulin dose Return visit in 3 months. Assessment & Plan (10/05/2022 5:03 PM [facility]OOK[facility] [employer]ESS [place]): Diabetes mellitus, Type 1, duration: 13 year(s), complications: none; Glycemic control: good control; PHQ-9 (depression) screening: nd, mental health referral(s): no; Recommended: increase targets on insulin pump as noted below; RD visit: no; Counseled: lab results, treatment options, follow up plan, return instructions and sick day guidelines, transitioning back to injections emergency for insulin pump failure; prescriptions refilled: yes; school letter provided: no; Schedule eye examination: no; rtc: 3 month(s) Orders Placed This Encounter MICROALB/CREAT RATIO URINE RANDOM PANEL Standing Status: Future Standing Expiration Date: 09/30/2023 Order Specific Question: Release to patient Answer: Immediate TSH Order Specific Question: Release to patient Answer: Immediate LIPID PROFILE Order Specific Question: Release to patient Answer: Immediate HEMOGLOBIN A1C - POCT (IP) BEAKER Standing Status: Future Number of Occurrences: 1 Standing Expiration Date: 09/30/2023 Order Specific Question: Release to patient Answer: Immediate HEMOGLOBIN A1C - POCT (IP) BEAKER Standing Status: Standing Number of Occurrences: 1 Order Specific Question: Release to patient Answer: Immediate Glucose sensor (Dexcom G6 or Renu) daily: yes For insulin pump failure: Lantus 26 u daily Humalog 1 u per 10 g carb (meals/snacks) with correction 1 u per 50 mg/dL over 150 mg/dL Increase insulin pump targets to daytime: 100 mg/dL; 10 pm to 6 am: 110 mg/dL Follow up by telephone as needed to review interval blood glucose levels and adjust insulin dose Return visit in 3 months. Assessment & Plan (06/29/2022 3:59 PM CDT): Diabetes mellitus, Type 1, duration: 13 year(s), complications: none; Glycemic control: good control; PHQ-9 (depression) screening: N/A, mental health referral(s): no, already sees counselor weekly; Recommended: rotate insulin pump insertion sites, increase daily physical activity/weight maintenance; RD visit: no; Counseled: lab results, treatment options, follow up plan, return instructions and weight maintenance; prescriptions refilled: yes; school letter provided: no; Schedule eye examination: yes; rtc: 3 month(s) Orders Placed This Encounter MICROALB/CREAT RATIO URINE RANDOM PANEL Please obtain urine microalbumin/creatinine ratio at local laboratory and fax results to Dr. Alex Hung at [phone]. Order Specific Question: Release to patient Answer: Immediate HEMOGLOBIN A1C - POCT (IP) BEAKER Standing Status: Future Number of Occurrences: 1 Standing Expiration Date: 06/24/2023 Order Specific Question: Release to patient Answer: Immediate HEMOGLOBIN A1C - POCT (IP) BEAKER Standing Status: Standing Number of Occurrences: 1 Order Specific Question: Release to patient Answer: Immediate blood glucose (OneTouch Verio) test strip Sig: Use to test 5-9 times daily Dispense: 200 strip Refill: 11 Rotate insulin pump catheter insertion sites Weight maintenance Glucose sensor (Dexcom G6 or Renu) daily: yes For insulin pump malfunction: Lantus 26 u daily Humalog 1 u per 10 g carb (meals/snacks) with correction: 1 u per 50 mg/dL over 150 mg/dL Follow up by telephone as needed to review interval blood glucose levels and adjust insulin dose Return visit in 3 months. Assessment & Plan (03/16/2022 1:48 PM CDT): Diabetes mellitus, Type 1, duration: 13 year(s), complications: none; Glycemic control: good control; PHQ-9 (depression) screening: N/A; Recommended: increase insulin to carb ratio at 4 pm (to midnight) to 1 u per 7 g carb; rotate insulin pump catheter insertion sites; RD visit: no; Counseled: diagnosis, lab results, treatment options, follow up plan and return instructions; prescriptions refilled: yes; Schedule eye examination: yes; rtc: 3 month(s) Orders Placed This Encounter HEMOGLOBIN A1C - POCT (IP) VERNELL Standing Status: Future Number of Occurrences: 1 Standing Expiration Date: 03/11/2023 Order Specific Question: Release to patient Answer: Immediate HEMOGLOBIN A1C - POCT (IP) VERNELL Standing Status: Standing Number of Occurrences: 1 Order Specific Question: Release to patient Answer: Immediate blood glucose (ONETOUCH VERIO) test strip Sig: Use to test 5-9 times daily Dispense: 200 strip Refill: 5 glucagon (GLUCAGEN) injection Sig: Inject 1 (one) mg into muscle as needed Dispense: 2 Each Refill: 0 HUMALOG 100 UNIT/ML cartridge Sig: INJECT UP TO 80 UNITS DAILY IN INSULIN PUMP OR DIRECTED Dispense: 75 mL Refill: 1 Glucose sensor (Dexcom G6 or Renu) daily: yes Lantus 26 u daily (for insulin pump failure) Add insulin to carb ratio at 4 pm (as above) Increase daily physical activity Eye examination in the fall Follow up by telephone as needed to review interval blood glucose levels and adjust insulin dose Return visit in 3 months. Assessment & Plan (12/22/2021 6:14 PM CDT): Diabetes mellitus, Type 1, duration: 12 year(s), complications: none; Glycemic control: good control; PHQ-9 (depression) screening: N/A; Recommended: no changes to insulin doses; may need to decrease Lantus after school year ends due to decreased physical activity; RD visit: no; Counseled: family not interested in switching back to insulin pump; lab results and treatment options; prescriptions refilled: yes; Schedule eye examination: no; rtc: 3 month(s) Orders Placed This Encounter HEMOGLOBIN A1C Order Specific Question: Release to patient Answer: Immediate Continuous Blood Gluc Sensor (DEXCOM G6 SENSOR) MISC Sig: Use 1 Each every 10 days Dispense: 3 Each Refill: 11 Continuous Blood Gluc Transmit (DEXCOM G6 TRANSMITTER) MISC Sig: Use 1 Each Every 90 days Dispense: 1 Each Refill: 3 insulin pen needle (B-D UF III MINI PEN NEEDLES) 31G X 5 MM needle Sig: as needed To inject insulin 5-6 times daily Dispense: 600 Each Refill: 3 HUMALOG 100 UNIT/ML cartridge Sig: INJECT UP TO 80 UNITS DAILY IN INSULIN PUMP OR DIRECTED Dispense: 75 mL Refill: 1 insulin glargine (Lantus/Semglee) 100 units/ml injection Sig: INJECT SUBCUTANEOUSLY 26 UNITS AT NIGHT OR DIRECTED WHEN OFF PUMP Dispense: 30 mL Refill: 1 Glucose sensor (Dexcom G6 or Renu) daily: yes Lantus 26 u daily Humalog 1 u per 9 g carb (midnight), 1 u per 4.5 g carb (4 am), 1 u per 9 g carb (11 am), 1 u per 10 g carb (4 pm) Correction: 1 u per 50 mg/dL over 150 mg/dL Follow up by telephone as needed to review interval blood glucose levels and adjust insulin dose Return visit in 3 months. Assessment & Plan (09/15/2021 2:41 PM COOK[facility] PROCESS [place]): Diabetes mellitus, Type 1, duration: 12 year(s), complications: none; Glycemic control: good control; PHQ-9 (depression) screening: N/A; Recommended: decrease Lantus and insulin to carb ratios as noted below; RD visit: no; Counseled: effects of physical activity on insulin dose/bg levels; prescriptions refilled: yes; Schedule eye examination: no; rtc: 3 month(s) Orders Placed This Encounter HEMOGLOBIN A1C Order Specific Question: Release to patient Answer: Immediate HEMOGLOBIN A1C - POCT (IP) VERNELL Standing Status: Future Standing Expiration Date: 09/07/2022 Order Specific Question: Release to patient Answer: Immediate HUMALOG 100 UNIT/ML cartridge Sig: INJECT UP TO 80 UNITS DAILY IN INSULIN PUMP OR DIRECTED Dispense: 75 mL Refill: 1 insulin glargine (Lantus/Semglee) 100 units/ml injection Sig: INJECT SUBCUTANEOUSLY 24 UNITS AT NIGHT OR DIRECTED WHEN OFF PUMP Dispense: 30 mL Refill: 1 Glucose sensor (Dexcom G6 or Renu) daily: yes Lantus 24 u daily Humalog 1 u per 9 g carb (midnight) 1 u per 4.5 g carb (4 am), 1 u per 9 g carb (11 am), 1 u per 10 g carb (4 pm) Correction: 1 u per 50 mg/dL over 150 mg/dL Follow up by telephone as needed to review interval blood glucose levels and adjust insulin dose Return visit in 3 months. Assessment & Plan (06/10/2021 6:24 PM CDT): Diabetes mellitus, Type 1, uncomplicated; duration: 12 years, excellent glycemic control. PHQ-9 (depression) screening: N/A; Advised: no changes to insulin dose; counseled regarding psychostimulant medication side effects encountered in DM patients; RD visit: yes; rtc: 3month(s) Dexcom G6 sensor daily yes Lantus 25 u daily Humalog 1 u per 4.5 g carb (am), 1 u per 9 g carb (noon), 1 u per 7 g carb (pm), 1 u per 8g carb (snack) Correction: 1 u per 50 mg/dL over 150 mg/dL Follow up by telephone as needed to review interval blood glucose levels and adjust insulin dose Return visit in three months. Assessment & Plan (03/04/2021 5:30 PM CDT): Type 1 diabetes mellitus, 12 years duration, uncomplicated. Excellent glycemic control, however, some degree of hypoglycemic unawareness (night time). Advised decrease Lantus to 25 u daily, f/u by telephone as needed, rtc 3 months. Dexcom G6 daily Lantus 26 u daily Humalog 1 u per 10 g carb (am), 1 u per 9 g carb (noon), 1 u per 7 g carb (dinner), & 1 u per 8 g carb (snack) Correction: 1 u per 50 mg/dL over 150 mg/dL Assessment & Plan (11/19/2020 2:47 PM CDT): 1) increase dinner to 1:7 2) call as needed to review blood sugars 3) return in [address] [place] Assessment & Plan (07/23/2020 3:56 PM [facility] [employer] [place]): 1) change dinner to 1 unit per 9 grams carb 2) keep up the great work 3) call as needed 4) return in 4 months for Jed Nocturnal headaches 04/29/2011 Overview (07/14/2015): Observed seizure-like activity Resolved Problems Problem Noted Date Diagnosed Date Resolved Date DKA (diabetic ketoacidoses) 01/03/2015 01/17/2015 Overview (06/06/2021): IMO 2020 Assessment & Plan (01/03/2015 3:29 PM CDT): Assessment: 9 yo female with known DM1 diagnosed at 3 years of age and been on an insulin pump since age ~4 presents in DKA after about 12 hrs of hyperglycemia. Most likely secondary to pump site failure. Plan: Admit to Endocrinology FEN/GI: NPO while on the insulin drip 2 bag system with TFV 125 ml/hr (3L/m2/day) CV: Cardiac monitors Resp: Stable on room air Endo: Insulin drip 0.1 u/kg/hr Glucose checks q1h and titrate fluids BMP q4h with first one at 1600, 2 hrs after starting the insulin infusion Plan to possibly transition back to home pump once correction of DKA Neuro: Continue home dose of Ethosuximide 375mg BID Neuro checks q2h, if concerning for altered mental status stat head ct and raise head of bed Type II or unspecified type diabetes mellitus without mention of complication, not stated as uncontrolled 11/27/2009 12/23/2009 Diabetes type 1, controlled 01/28/2009 03/04/2021 Assessment & Plan (01/09/2020 3:46 PM CDT): 1) no changes at this time 2) don't sit cross legged or for more than 30 minutes at a time without standing 3) call if tingling in feet worsens 4) keep up the great work with diabetes 5) return in 3 months Assessment & Plan (07/19/2019 8:27 AM [facility] [employer] [place]): 1) increase lunch to 1 unit per 4 grams of carb 2) call as needed to review blood sugars 3) make sure to take insulin before lunch 4) return in 4 months Assessment & Plan (01/10/2019 3:14 PM CDT): 1) must do premeal insulin 2) use carb/protein snacks for competition 3) call as needed to review blood sugars 4) return in 4 months Assessment & Plan (07/19/2018 3:09 PM [employer] [employer]): 1) increase lunch to 1:5 2) breakfast must be taken pre-meal 3) call in one week to review sensor 4) return for Dr. Washington Assessment & Plan (01/11/2018 12:32 PM CDT): 1) increase 0300 basal to 1 unit per hour 2) increase 4am ISF to 45 3) increase 230 pm isf to 60 5) call as needed 6) return in april Assessment & Plan (07/20/2017 3:00 PM [facility] [employer]): 1) increase midnight basal to 0.825 units per hour 2) call as needed to review blood sugars 3) return in october Assessment & Plan (04/05/2017 2:28 PM CDT): 1) no changes at this time 2) call as needed to review blood sugars 3) return in 3 months for Jed, [address] Washington Assessment & Plan (09/29/2016 2:36 PM [employer] [employer]): 1) increase breakfast to 1:9 2) call as needed to review blood sugars 3) return in December for Dr. Washington Assessment & Plan (03/10/2016 1:11 PM CDT): 1) increase basal from [id number] to 0.65 units per hour 2) increase by 0.025 every 4 days until wake up numbers are consistently between 120-180 3) continue to work on pre-meal insulin 4) return in June for Dr. Washington 5) schedule eye exam 6) call as needed Assessment & Plan (12/03/2015 2:32 PM CDT): 1) add 8pm to midnight basal of 0.6 units per hour 2) consider using stomach for pump and sensor sites 3) grifgrips to help hold on sensor sites 4) return in 3 months for jed, in [address] Washington Assessment & Plan (05/20/2015 10:32 AM CDT): 1) increase midnight basal to 0.525 2) increase Sensitivity to 70 3) wear dexcom this week 4) call by Wednesday if morning numbers are either too low or not under 200 5) Return for Dr. Washington Assessment & Plan (05/23/2013 3:31 PM CDT): 1) add segment from 6am to 1 pm to run at 0.425 units per hour 2) call as needed to review blood sugars 3) check thyroid and celiac screens today 4) return in 3-[address] Washington Encounters Date Type Department Care Team Description 07/09/2025 Refill [facility] Pediatrics - Endocrinology [address] [facility] [place] [address] Alex Hung MD Refill Request from Last 3 Months Immunizations Immunization Administration Dates Next Due DTAP/HEP B/IPV 07/09/2006,05/04/2006,02/23/2006 DTAP/IPV 01/05/2011 DTaP VACCINE IM (6wk-6yrs) 05/03/2007 HEP A PED/ADULT VACCINE 01/09/2008,07/01/2007 HEP B VACCINE, PED/ADOL 2005 HIB VACCINE 05/03/2007,05/04/2006,02/23/2006 Human Papilloma Virus Nineva lent Vaccine 04/18/2021,02/08/2020 INFLUENZA VACCINE 06/17/2010 INFLUENZA VACCINE, QUADR. (F LUZONE; FLULAVAL; FLUARIX; AFLURIA QUADRIVALENT; 6MO+), 0.5 ML (IIV4) 07/23/2020,07/18/2019,07/19/2018,07/20,06/09/2016,08/27/2015 INFLUENZA VACCINE, TRIV. (FL UZONE; FLULAVAL; FLUARIX; AFLURIA TRIVALENT; 6MO+), 0.5 ML (IIV3) 10/30/2024 MENINGOCOCCAL ACWY (MCV4P) VAC IM 06/04/2017 MENINGOCOCCAL ACWY MENVEO 04/21/2022 MMR/VARICELLA 01/05/2011,01/04/2007 PNEUMOCOCCAL PCV7 CONJ, PEDS 01/04/2007, 07/09/2006,05/04/2006,02/23 TDAP, HISTORIC VACCINE 04/03/2016 Family History Medical History Relation Name Comments Cancer Maternal Grandmother cervica l cancer, treated Depression Maternal Grandmother Stroke Maternal Grandmother Bipolar Disorder Mother Vilma Hooks Relation Name Status Comments Maternal Grandmother Mother Vilma Hooks Alive Social History Tobacco Use Types Packs/Day Years Used Date Smoking Tobacco: Never Passive Smoke Exposure: Yes Smokeless Tobacco: Never Tobacco Cessation:Counseling Given: Not Answered Alcohol Use Standard Drinks/Week Comments No 0 (1 standard drink = 0.6 oz pur e alcohol) PHQ-2 Answer Date Recorded Patient Health Questionnaire-2 Score 4 07/23/2020 Comments No Sex and Gender Information Value Date Recorded Sex Assigned at Not on file Legal Sex Female 7:33 AM [employer] Gender Identity Not on file Sexual Orientation Not on file Last Filed Vital Signs Vital Sign Reading Time Taken Comments Blood Pressure 106/70 03/08/2025 1:00 PM CDT Pulse 80 03/08/2025 1:00 PM CDT Temperature 36.6 C (97.8 F) 02/22/2022 8:26 PM CDT Respiratory Rate 16 07/19/2023 8:22 AM [facility] [employer] [facility] Oxygen Saturation 98% 03/08/2025 1:00 PM CDT Inhaled Oxygen Concentration - - Weight 63.7 kg (140 lb 6.4 oz) 03/08/2025 1:00 P M CDT Height 162.6 cm (5' 4) 03/08/2025 1:00 PM CDT Body Mass Index 24.1 03/08/2025 1:00 PM CDT Plan of Treatment Upcoming Encounters Date Type Department Care Team (Late st Contact Info) Description 08/06/2025 1:40 PM [facility] [employer] [facility] Office Visit [facility] - Endocrinology [address] [place] [address], [place] [address] Faith Wallace MD [address] [place] [address] [place] [address] Health Maintenance Due Date Last Done Comments PNEUMOCOCCAL VACCINE (1 of 1 - PPSV23, PCV20, or PCV21) 01/01/2012 01/04/2007, 07/09/2006, 05/04/2006, Additional history exists DIABETES RETINOPATHY SCREENING 10/17/2013 HIV SCREENING 2020 CHLAMYDIA/GONORRHEA SCREENING 2021 MENINGOCOCCAL (Group B) VACC INE SHARED DECISION-MAKING (1 of 2 - Standard) 2021 HEPATITIS C SCREENING 12/27/2023 DIABETES-FOOT EXAM WITH MONOFILAMENT 01/01/2024 DIABETES-SERUM CREATININE 01/01/20242021, 01/03/2015, 01/03/2015, Additional history exists DEPRESSION SCREENING 09/06/2024 DIABETES - URINE PROTEIN SCREENING 09/06/2024 06/10/2021, 04/22/2020, 12/22/2018, Additional history exists COVID-19 VACCINE (1 - 2023-2 5 season) 2025 INFLUENZA VACCINE (#1) 2025 , 07/23/2020, 07/18/2019, Additional history exists DIABETES-HGB A1C 09/08/2025 03/08/2025, , 11/01/2023, Additional history exists DTAP/TDAP/TD VACCINES (7 - T d or Tdap) 04/03/2026 04/03/2016, 01/05/2011, 05/03/2007, Additional history exists ZOSTER VACCINE (1 of 2) 01/01/2056 HEPATITIS B VACCINE Completed 07/09/2006, 05/04/2006, 02/23/2006, Additional history exists HIB VACCINE Completed 05/03/2007, 04/07, 02/23/2006 HPV VACCINE Completed 04/18/2021, 02/08/2020 MENINGOCOCCAL GROUPS A/C/Y/W VACCINE Completed 04/21/2022, 06/04/2017 Procedures Procedure Name Priority Date/Time Associated Diagnosis Comments HEMOGLOBIN A1C - POINT OF CARE (AMB) [facility] Routine 03/08/2025 1:18 PM CDT Type 1 diabetes mellitus without complication (HCC) BASIC METABOLIC PANEL (CALCIUM TOTAL) STAT 02/22/2022 9:02 PM CDT MICROALB/CREAT RATIO URINE RANDOM PANEL Routine 06/10/2021 9:53 AM CDT Type 1 diabetes mellitus without complication from Last 3 Months or Most Recently Relevant to Health Maintenance Results * HEMOGLOBIN A1C - POINT OF CARE (AMB) [facility] (03/08/2025 1:18 PM CDT) [facility] Hemoglobin A1c POCT 7.5 % [address] BLOOD SPECIMEN / Unknown 03/08/2025 1:18 PM CDT Faith Wallace MD LAB - POINT OF CARE ORDERABLES Final Result [address], [place] [address], [place] [phone] * (ABNORMAL) BASIC METABOLIC PANEL (CALCIUM TOTAL) (02/22/2022 9:02 PM CDT) Pathologist [facility] BUN 18 5 - 19 mg/dL 02/22/2022 9:56 PM CDT [facility] Creatinine 0.81 0.48 - 0.84 mg/dL 02/22/2022 9:56 PM [facility] Sodium 137 136 - 145 mmol/L 02/22/2022 9:56 PM [facility] Potassium See Comment 3.5 - 4.5 mmol/L 02/22/2022 9:56 PM [facility] Comment: Significant hemolysis detected in this specimen. Recommend repeat testing if clinically indicated. Potassium is 6.4 mmol/L Chloride 104 98 - 107 mmol/L 02/22/2022 9:56 PM [facility] CO2 14(L) 20 - 28 mmol/L 02/22/2022 9:56 PM [facility] Glucose 213(H) 70 - 115 mg/dL 02/22/2022 9:56 PM [facility] Calcium 10.2 8.4 - 10.2 mg/dL 02/22/2022 9:56 PM [facility] BUN/Creatinine Ratio 22 7 - 23 02/22/2022 9:56 PM [facility] Osmolality Calculated 292 270 - 300 mOsm/kg 02/22/2022 9:56 PM [facility] Blood BLOOD SPECIMEN / Unknown Venipuncture / Unknown 02/22/2022 9:02 PM T 02/22/2022 9:10 PM [facility] us Katey Tolbert MD LAB - CHEMISTRY ORDERABLES F inal Result [address] [address], [place] [phone] * MICROALB/CREAT RATIO URINE RANDOM PANEL (06/10/2021 9:53 AM [facility]) Albumin Random Urine 7.4 Not Established ug/mL 06/10/2021 10:33 AM [facility] Creatinine Urine 152 Not Established mg/dL 06/10/2021 10:33 AM [facility] Urine Albumin/Creati nine Ratio 5 <30 mg/g 06/10/2021 10:33 AM [facility] Urine URINE SPECIMEN OBTAINED BY CLEAN CATCH PROCEDURE / Unknown Collection / Unknown 06/10/2021 9:53 AM CDT 06/10/2021 10:18 AM CDT Alex Hung MD LAB - URINE CHEMISTRY ORDERABLES Final Result Performing Organization Address City/State/[facility] Co de Phone Number [facility] [address] [place] [address], [place] [phone] from Last 3 Months or Most Recently Relevant to Health Maintenance Insurance ANTHEM ANTHEM ANTHEM ANTHEM Care Teams Compensation And Benefits Advisor Relationship Specialty Start Date End Date Marce Robert MD [address] [facility] [address] [place] [address] PCP - General 04/18/18
[2025-07-16 13:55] VITALS: BP 150/74; PULSE 79; RESP 16; TEMP 36.5; O2SAT 100
--- NOTE | 2025-07-16 14:10 | ED.FEMALEGU ---
HPI - Female Genitourinary General Chief complaint: Urogenital-Female Stated complaint: UTI History of Present Illness HPI Narrative: patient is a 19-year-old female, past medical history is significant for type 1 diabetes, presents to [facility] with approximately 2 week history of waxing and waning dysuria, for which she treated her symptoms using azo. Her symptoms seemed to improve but have not resolved. She denies associated fevers chills cough she has no flank pain, nausea vomiting or diarrhea. She has no vaginal discharge or concerns for STI. She reports having 1 prior urinary tract infection when she was around age 6. She is on oral contraceptive therapy and denies chance of . She denies any additional associated symptoms or modifying factors. She reports her blood sugars are well controlled Related Data Home Medications ?Medication ?Instructions ?Recorded ?Confirmed ?Last Taken ?Type insulin lispro 100 unit/mL ea 02/03/22 06/13/25 Unknown History subcutaneous cartridge (Humalog U-100 Insulin) etonogestrel 68 mg subdermal 1 implant subdermal ONCE 06/13/25 06/13/25 Unknown History implant (Nexplanon) Allergies Allergy/AdvReac Type Severity Reaction Status Date / Time No Known Allergies Allergy Verified 07/16/25 13:54 Review of Systems Genitourinary: Genitourinary: Reports as per [facility] Past Medical History Medical History Diabetes Surgical History Surgical History H/O gynecological procedure Nexplanon removal/ reinsertion 01/2022 No pertinent past surgical history Family History Family History Mother Depression Grandparent Hypertension Cyst, uterus Social History Social History Alcohol intake: never Substance use: never Substance use type: does not use Do You Feel Safe in your Home?: Yes Lack of Transportation: No Lack of Food: Never True Current Housing: I Have Housing Concerned About Future Housing: No Difficulty Paying Gas/Electric Bills: No Difficulty Paying for Meds: No Currently Unemployed: No Education: Don't Know Difficulty w/ Childcare or Family Care: No Living arrangements: with family Occupation/Education: student Gender identity (if verbalized by the patient): Female Sexual Orientation (if Verbalized by the Patient): Straight or Heterosexual Exam Const: General: cooperative, healthy appearing, comfortable and no acute distress Nutritional Appearance: average body habitus Orientation/consciousness: oriented to person, oriented to place, oriented to time and patient oriented x3 Limitations: no limitations HENMT: Head: normal to inspection and No palpable skull fracture present Ears: hearing grossly normal bilaterally and external ears normal Face and sinus: normal facial exam Mouth: Yes Normal oral and palatal mucosa present Eyes: General: appearance normal, both eyes and all related structures Visual Ascencio: normal visual ascencio by confrontation Alignment and Position: alignment normal Periorbital: periorbital findings normal Eyelids: eyelids normal Neck: Neck: normal visual inspection and full ROM Chest: Chest palpation & inspection: normal inspection of the chest Resp: Effort & Inspection: normal respiratory effort Auscultation: clear to auscultation bilaterally Cardio: Jugular venous distension: no JVD Palpation: normal PMI Rate: regular rate : Other: no CVA tenderness to percussion bilaterally, no abdominal tenderness to palpation or palpable mass/hernia Back/Spine/Pelvis: Back: no CVA tenderness Skin: General skin exam: normal color and no rashes or lesions noted Lesions: no lesions Rashes: no rashes Neuro: General: oriented to person, oriented to place, oriented to time, patient oriented x3, gait normal, tone normal, moves all extremities and CN's II-XI intact bilaterally Course Course Emergency Course: patient's urinalysis shows leukocytes, negative for nitrites, positive protein, negative for blood, no ketones are present, will treat with cephalexin, pushing fluids, urine culture to reflex. Patient is advised she must proceed to the ER if she develops fevers, flank pain or vomiting or with any concerns her condition is worsening Level of Care: Express Care Visit (10108) Vital Signs Vital signs: Vital Signs Temperature 36.5 C 07/16/25 13:55 Pulse Rate 79 07/16/25 13:55 Respiratory Rate 16 07/16/25 13:55 Blood Pressure 150/74 H 07/16/25 13:55 Pulse Oximetry 100 07/16/25 13:55 Oxygen Delivery Room Air 07/16/25 13:55 Temperature 36.5 C 07/16/25 13:55 Pulse Rate 79 07/16/25 13:55 Respiratory Rate 16 07/16/25 13:55 Blood Pressure 150/74 H 07/16/25 13:55 Pulse Oximetry 100 07/16/25 13:55 Oxygen Delivery Room Air 07/16/25 13:55 MDM - Female Genitourinary MDM Narrative Medical decision making narrative: acute cystitis, pyelonephritis, STI Differential Diagnosis Differential diagnosis: Likely urinary tract infection, bacterial vaginosis, vaginitis and cystitis Discharge Plan Discharge Clinical Impression: Acute cystitis without hematuria Patient Disposition: Home Condition: Stable Instructions: Antibiotic Form, Urinary Tract Infection in Women (ED) Additional Instructions: PUSH FLUIDS, COMPLETE ANTIBIOTICS PRESCRIBED. FOLLOW-UP WITH YOUR PCP WITHOUT FAIL IF YOUR SYMPTOMS ARE NOT RESOLVING IN 3-5 DAYS. PROCEED TO THE ER IF YOU DEVELOPS FEVERS, FLANK PAIN OR VOMITING, OR WITH ANY CONCERNS YOUR CONDITION IS WORSENING. Patient Language: Yoruba Prescriptions: New cephalexin 500 mg capsule 500 mg PO Q12H Qty: 7 0RF No Action Humalog U-100 Insulin 100 unit/mL cartridge Nexplanon 68 mg implant 1 implant subdermal ONCE Rx Instructions: as a single dose norgestimate-ethinyl estradiol [Sprintec (28)] 0.25-0.035 mg tablet 1 tablet PO DAILY Qty: 84 1RF Follow-up/Referrals: PHYSICIAN,[facility] [Primary Care Provider, Internal Medicine] Time of Disposition: 14:17
[2025-07-16 14:12] LABS: EDUAAPPEAR Cloudy; EDUABILI Negative (Negative); EDUABLOOD Negative (Negative); EDUACOLOR1 Yellow; EDUAGLUCOSE Negative (Negative); EDUAKETONE Negative (Negative); EDUALEUKO 1+ (Negative); EDUANITRATE Negative (Negative); EDUAPH 6.5; EDUAPROTEIN 2+ (Negative); EDUASPGRAVITY 1.025; EDUAUROBILI 0.2
== END 2025-07-16 14:21 | disposition home or self-care (01) ==
PROVIDERS: Emergency Provider Nurse Practitioner Family
DX: N30.00 Acute cystitis without hematuria (principal); E10.9 Type 1 diabetes mellitus without complications; Z79.4 Long term (current) use of insulin
CPT/HCPCS: 81003; 87086; 99213; G0463

== ENCOUNTER 2025-07-30 19:27 | Emergency (ER) | payer BC, SELFPAY ==
--- NOTE | ~2025-07-30 | CT_ITS ---
EXAMINATION: CT abdomen pelvis w con DATE: 07/31/2025 00:37 INDICATION: Right lower quadrant abdominal pain. Nausea and vomiting. TECHNIQUE: Computed tomography (CT) of the abdomen and pelvis was performed with 100 mL Omnipaque 350 intravenous contrast. Automated exposure control and iterative reconstruction technique were employed. The dose-length product was 321.51 mGy-cm. COMPARISON: None. FINDINGS: The visualized portions of lung bases demonstrate mild atelectasis on the right. No pleural effusion. The heart size is normal. No pericardial effusion. There is a 2.2 cm mass in the left hepatic lobe. The gallbladder, spleen, pancreas, adrenal glands, and kidneys are normal. The appendix is normal. There are no dilated loops of bowel. L4 is a butterfly segment. IMPRESSION: 1. 2.2 cm liver mass which may be benign or less likely malignant. Abdomen MRI without and with contrast is recommended. Reviewed, dictated and finalized at location E. [employer]
[2025-07-30 19:39] VITALS: BP 131/59; PULSE 96; RESP 14; TEMP 36.4; O2SAT 100
--- NOTE | 2025-07-30 20:32 | PC.NURSE ---
Attempted x2 for lab/IV, unsuccessful in triage. Pt very visibly distressed during lab/IV attempts.
[2025-07-30 20:52] LABS: BEDSIDEPREGUCG Negative (Negative)
[2025-07-30 21:10] LABS: Add Urine Microscopic? YES; Appearance Urine Clear (Clear); Glucose Urine UA 2+ mg/dL (Negative); Leukocyte Esterase Ur Negative LEU/UL (Negative); Nitrate Urine Negative (Negative); Non Pathogenic Casts 0-2; Specific Grav Ur 1.033 (1.001-1.035)
--- NOTE | 2025-07-30 21:32 | PC.NURSE ---
Pt states she was on an antibiotic for staph in her urinary tract last week, taken for 3 days. Pt states she finished the antibiotics wednesday.
--- NOTE | 2025-07-30 22:22 | PC.NURSE ---
Primary RN and multiple RNs attempted IV access on pt without success. PCP verbalized order for ultrasound IV. No further orders at this time.
--- NOTE | 2025-07-30 23:01 | ED.ABDPAIN ---
HPI - Abdominal Pain General Chief Complaint: Abdominal Pain <TAMMI Fischer Last Filed: 08/02/25 09:01> Stated Complaint: abd pain <TAMMI Fischer Last Filed: 08/02/25 09:01> Time Seen by Provider: 07/30/25 21:17 <TAMMI Fischer Last Filed: 08/02/25 09:01> Source: patient <TAMMI Fischer Last Filed: 08/02/25 09:01> Mode of arrival: ambulatory <TAMMI Fischer Last Filed: 08/02/25 09:01> Limitations: no limitations <TAMMI Fischer Last Filed: 08/02/25 09:01> History of Present Illness HPI narrative: Patient is a 19-year-old female, with PMH of DMI, who presents the ED with report of right lower abdominal pain. Patient reports she was woken up with the pain around 3:00 a.m. this morning. States it began in her RLQ and has since radiated throughout her abdomen. Reports nausea and 1 episode of emesis today. Denies diarrhea, constipation, dysuria, hematuria, fevers. Denies history of similar pain. <TAMMI Fischer Last Filed: 08/02/25 09:01> Related Data Home Medications: Home Medications ?Medication ?Instructions ?Recorded ?Confirmed ?Last Taken ?Type insulin lispro 100 unit/mL ea 02/03/22 06/13/25 Unknown History subcutaneous cartridge (Humalog U-100 Insulin) etonogestrel 68 mg subdermal 1 implant subdermal ONCE 06/13/25 06/13/25 Unknown History implant (Nexplanon) <TAMMI Fischer Last Filed: 08/02/25 09:01> Allergies/Adverse Reactions: Allergies Allergy/AdvReac Type Severity Reaction Status Date / Time No Known Allergies Allergy Verified 07/30/25 19:39 <TAMMI Fischer Last Filed: 08/02/25 09:01> Review of Systems Review of Systems: All systems reviewed & are unremarkable except as noted in HPI. <Amina Rosario PA-C - Last Filed: 08/02/25 09:01> All systems reviewed & are unremarkable except as noted in HPI and below <Amina Rosario PA-C - Last Filed: 08/02/25 09:01> PMFSH Past Medical History Medical History: Medical History Diabetes <Amina Rosario PA-C - Last Filed: 08/02/25 09:01> Surgical History Surgical History: Surgical History H/O gynecological procedure Nexplanon removal/ reinsertion 01/2022 No pertinent past surgical history <Amina Rosario PA-C - Last Filed: 08/02/25 09:01> Family History Family History: Family History Mother Depression Grandparent Hypertension Cyst, uterus <Amina Rosario PA-C - Last Filed: 08/02/25 09:01> Social History Social History: Social History Smoking status: Never smoker Alcohol intake: never Substance use: never Substance use type: does not use Lack of Transportation: No Lack of Food: Never True Current Housing: I Have Housing Concerned About Future Housing: No Difficulty Paying Gas/Electric Bills: No Difficulty Paying for Meds: No Currently Unemployed: No Education: Don't Know Difficulty w/ Childcare or Family Care: No Living arrangements: with family Occupation/Education: student Gender identity (if verbalized by the patient): Female Sexual Orientation (if Verbalized by the Patient): Straight or Heterosexual <Amina Rosario PA-C - Last Filed: 08/02/25 09:01> Exam Narrative: GENERAL: Uncomfortable appearing, well-nourished, non-toxic, in no acute distress. HEAD: Normocephalic, atraumatic. RESPIRATORY: Airway patent, respirations nonlabored. Clear to auscultation bilaterally, no rales, rhonchi, wheezing. CARDIOVASCULAR: Regular rate and rhythm without murmurs, rubs, or gallops. ABDOMINAL: Soft, moderate TTP w/ guarding in RLQ, no karla rebound tenderness, nondistended. Normoactive BS. MUSCULOSKELETAL: Moves all extremities. No gross deformities. SKIN: Warm, dry, normal color. NEURO: A&O X3. Speech clear. Cranial nerves II-XII grossly intact. Steady gait. No ataxic movements. PSYCHIATRIC: Tearful. Normal interaction. <TAMMI Fischer Last Filed: 08/02/25 09:01> Course Vital Signs Vital signs: Vital Signs Temperature 97.6 F 07/30/25 19:39 Pulse Rate 96 07/30/25 19:39 Respiratory Rate 14 07/30/25 19:39 Blood Pressure 131/59 L 07/30/25 19:39 Pulse Oximetry 100 07/30/25 19:39 Oxygen Delivery Room Air 07/30/25 19:39 Temperature 97.6 F 07/30/25 19:39 Pulse Rate 82 07/31/25 04:20 Respiratory Rate 17 07/31/25 04:20 Blood Pressure 124/81 07/31/25 04:20 Pulse Oximetry 100 07/31/25 04:20 Oxygen Delivery Room Air 07/30/25 19:39 <Amina Rosario PA-C - Last Filed: 08/02/25 09:01> Vital Signs Temperature 97.6 F 07/30/25 19:39 Pulse Rate 96 07/30/25 19:39 Respiratory Rate 14 07/30/25 19:39 Blood Pressure 131/59 L 07/30/25 19:39 Pulse Oximetry 100 07/30/25 19:39 Oxygen Delivery Room Air 07/30/25 19:39 Temperature 97.6 F 07/30/25 19:39 Pulse Rate 82 07/31/25 04:20 Respiratory Rate 17 07/31/25 04:20 Blood Pressure 124/81 07/31/25 04:20 Pulse Oximetry 100 07/31/25 04:20 Oxygen Delivery Room Air 07/30/25 19:39 <Olvin Chakraborty MD - Last Filed: 07/31/25 05:18> MDM - Abdominal Pain MDM Narrative Medical decision making narrative: Patient presented to ED with right lower abdominal pain that began this morning. Associated with nausea and vomiting. Vital signs stable upon arrival. Patient is afebrile here. Laboratory studies with leukocytosis of 13.8. Stable H&H. CMP unremarkable aside from mildly elevated blood sugar to 177. Normal anion gap. Normal bicarb. UA with trace ketones, no signs of infection. Urine negative. CT scan of abdomen/pelvis was obtained. Care signed out to Dr. Chakraborty at shift change pending STAT RAD CT imaging. <Amina Rosario PA-C - Last Filed: 08/02/25 09:01> Patient presented to ED with right lower abdominal pain that began this morning. Associated with nausea and vomiting. Vital signs stable upon arrival. Patient is afebrile here. Laboratory studies with leukocytosis of 13.8. Stable H&H. CMP unremarkable aside from mildly elevated blood sugar to 177. Normal anion gap. Normal bicarb. UA with trace ketones, no signs of infection. Urine negative. CT scan of abdomen/pelvis was obtained. Care signed out to Dr. Chakraborty at shift change pending STAT RAD CT imaging. Patient care signed over by previous provider pending CT scan re-evaluation. Patient re-evaluated and doing well. Pain controlled no longer nauseous or having any vomiting. Vomited [address] scan shows mild gastroenteritis with no signs of obstruction. Hypodense lesion in the left lobe of the liver likely unrelated but I did relayed this to the patient and the family member at bedside. They will follow-up outpatient for this. Discussed with her minor elevation white count and symptoms that brought her to the ER we will treat this with a short course of 3 days of ciprofloxacin and Zofran as needed for nausea control and Bentyl for abdominal cramping. Patient felt comfortable with the plan and given strict return precautions and is safe and stable for discharge home at this time. <Olvin Chakraborty MD - Last Filed: 07/31/25 05:18> Medical Records Attestation: I reviewed the patient's medical records. <Amina Rosario PA-C - Last Filed: 08/02/25 09:01> Lab Data Attestation: I reviewed the patient's lab results. <Amina Rosario PA-C - Last Filed: 08/02/25 09:01> Result diagrams: 07/30/25 23:52 07/30/25 23:52 <Amina Rosario PA-C - Last Filed: 08/02/25 09:01> Labs: Lab Results 07/30/25 07/30/25 07/30/25 Range/Units 20:07 20:49 20:51 WBC (4.5-10.0) K/mm3 RBC (4.2-5.4) M/mm3 Hgb (12.0-15.0) g/dL Hct (37.0-47.0) % MCV (80-100) fl MCH (26-34) pg MCHC (32-36) g/dl RDW (11.5-14.5) % Plt Count (150-375) k/mm3 MPV (7.4-10.4) fl Immature Gran % (Auto) (0-0.5) % Neut % (Auto) (45.5-73.1) % Lymph % (Auto) (18.3-44.2) % [place] % (Auto) (2.6-8.5) % Eos % (Auto) (0-4.4) % Baso % (Auto) (0.2-1.2) % Lymph # (Auto) (0.9-3.2) K/mm3 [place] # (Auto) (0.1-0.6) K/mm3 Eos # (Auto) (0-0.3) K/mm3 Baso # (Auto) (0.0-0.1) K/mm3 Abs Immat Gran (auto) (0.00-0.031) K/mm3 Absolute Neuts (auto) (1.3-6.7) K/mm3 Absolute Nucleated RBC (0.0-0.012) K/mm3 Nucleated RBC % (0.0-0.2) % Sodium (134-143) mmol/L Potassium (3.4-5.0) mmol/L Chloride (98-107) mmol/L Carbon Dioxide (22-30) mmol/L Anion Gap (4-12) mmol/L BUN (8-21) mg/dL Creatinine (0.7-1.0) mg/dL Estim Creat Clear Calc ml/min Estimated GFR (59 - ) Glucose (65-110) mg/dL POC Capillary Glucose 119 H (65-105) mg/dl Calcium (8.9-10.7) mg/dL Total Bilirubin (0.2-1.3) mg/dL AST (14-36) U/L ALT (6-35) U/L Alkaline Phosphatase (45-116) U/L Total Protein (6.3-8.6) g/dL Albumin (3.7-5.6) g/dL Lipase (23-300) U/L Urine Color Yellow (Yellow) Urine Appearance Clear (Clear) Urine pH 5.5 (5.0-9.0) Ur Specific [place] 1.033 (1.001-1.035) Urine Protein Trace (Negative) mg/dL Urine Glucose (UA) 2+ H (Negative) mg/dL Urine Ketones Trace H (Negative) mg/dL Ur Blood (Man) Trace (Negative) Urine Nitrate Negative (Negative) Urine Bilirubin Negative (Negative) Urine Urobilinogen 1.0 (<2.0) mg/dL Leukocyte Esterase Rfl Negative (Negative) PURVI/UL Urine RBC 3-5 H (0-2) /hpf Urine WBC 0-5 (0-3) /hpf Ur Squamous Epith Cells Few (Few) /hpf Urine Bacteria 1+ H /hpf Urine Casts 0-2 POC Urine HCG, Qual Negative (Negative) 07/30/ Range/Units 23:52 WBC 13.8 H (4.5-10.0) K/mm3 RBC 3.91 L (4.2-5.4) M/mm3 Hgb 12.5 (12.0-15.0) g/dL Hct 35.9 L (37.0-47.0) % MCV 91.8 (80-100) fl MCH 32.0 (26-34) pg MCHC 34.8 (32-36) g/dl RDW 11.8 (11.5-14.5) % Plt Count 335 (150-375) k/mm3 MPV 9.8 (7.4-10.4) fl Immature Gran % (Auto) 0.4 (0-0.5) % Neut % (Auto) 68.5 (45.5-73.1) % Lymph % (Auto) 24.6 (18.3-44.2) % [place] % (Auto) 4.9 (2.6-8.5) % Eos % (Auto) 1.1 (0-4.4) % Baso % (Auto) 0.5 (0.2-1.2) % Lymph # (Auto) 3.40 H (0.9-3.2) K/mm3 [place] # (Auto) 0.7 H (0.1-0.6) K/mm3 Eos # (Auto) 0.2 (0-0.3) K/mm3 Baso # (Auto) 0.1 (0.0-0.1) K/mm3 Abs Immat Gran (auto) 0.05 H (0.00-0.031) K/mm3 Absolute Neuts (auto) 9.5 H (1.3-6.7) K/mm3 Absolute Nucleated RBC 0.000 (0.0-0.012) K/mm3 Nucleated RBC % 0.0 (0.0-0.2) % Sodium 134 (134-143) mmol/L Potassium 3.7 (3.4-5.0) mmol/L Chloride 104 (98-107) mmol/L Carbon Dioxide 23 (22-30) mmol/L Anion Gap 7 (4-12) mmol/L BUN 12 (8-21) mg/dL Creatinine 0.65 L (0.7-1.0) mg/dL Estim Creat Clear Calc 99 ml/min Estimated GFR > 60 (59 - ) Glucose 177 H (65-110) mg/dL POC Capillary Glucose (65-105) mg/dl Calcium 9.2 (8.9-10.7) mg/dL Total Bilirubin 0.3 (0.2-1.3) mg/dL AST 21 (14-36) U/L ALT 14 (6-35) U/L Alkaline Phosphatase 64 (45-116) U/L Total Protein 7.1 (6.3-8.6) g/dL Albumin 4.0 (3.7-5.6) g/dL Lipase 41 (23-300) U/L Urine Color (Yellow) Urine Appearance (Clear) Urine pH (5.0-9.0) Ur Specific [place] (1.001-1.035) Urine Protein (Negative) mg/dL Urine Glucose (UA) (Negative) mg/dL Urine Ketones (Negative) mg/dL Ur Blood (Man) (Negative) Urine Nitrate (Negative) Urine Bilirubin (Negative) Urine Urobilinogen (<2.0) mg/dL Leukocyte Esterase Rfl (Negative) PURVI/UL Urine RBC (0-2) /hpf Urine WBC (0-3) /hpf Ur Squamous Epith Cells (Few) /hpf Urine Bacteria /hpf Urine Casts POC Urine HCG, Qual (Negative) <Amina Rosario PA-C - Last Filed: 08/02/25 09:01> Lab Results 07/30/25 07/30/25 07/30/25 Range/Units 20:07 20:49 20:51 WBC (4.5-10.0) K/mm3 RBC (4.2-5.4) M/mm3 Hgb (12.0-15.0) g/dL Hct (37.0-47.0) % MCV (80-100) fl MCH (26-34) pg MCHC (32-36) g/dl RDW (11.5-14.5) % Plt Count (150-375) k/mm3 MPV (7.4-10.4) fl Immature Gran % (Auto) (0-0.5) % Neut % (Auto) (45.5-73.1) % Lymph % (Auto) (18.3-44.2) % [place] % (Auto) (2.6-8.5) % Eos % (Auto) (0-4.4) % Baso % (Auto) (0.2-1.2) % Lymph # (Auto) (0.9-3.2) K/mm3 [place] # (Auto) (0.1-0.6) K/mm3 Eos # (Auto) (0-0.3) K/mm3 Baso # (Auto) (0.0-0.1) K/mm3 Abs Immat Gran (auto) (0.00-0.031) K/mm3 Absolute Neuts (auto) (1.3-6.7) K/mm3 Absolute Nucleated RBC (0.0-0.012) K/mm3 Nucleated RBC % (0.0-0.2) % Sodium (134-143) mmol/L Potassium (3.4-5.0) mmol/L Chloride (98-107) mmol/L Carbon Dioxide (22-30) mmol/L Anion Gap (4-12) mmol/L BUN (8-21) mg/dL Creatinine (0.7-1.0) mg/dL Estim Creat Clear Calc ml/min Estimated GFR (59 - ) Glucose (65-110) mg/dL POC Capillary Glucose 119 H (65-105) mg/dl Calcium (8.9-10.7) mg/dL Total Bilirubin (0.2-1.3) mg/dL AST (14-36) U/L ALT (6-35) U/L Alkaline Phosphatase (45-116) U/L Total Protein (6.3-8.6) g/dL Albumin (3.7-5.6) g/dL Lipase (23-300) U/L Urine Color Yellow (Yellow) Urine Appearance Clear (Clear) Urine pH 5.5 (5.0-9.0) Ur Specific [place] 1.033 (1.001-1.035) Urine Protein Trace (Negative) mg/dL Urine Glucose (UA) 2+ H (Negative) mg/dL Urine Ketones Trace H (Negative) mg/dL Ur Blood (Man) Trace (Negative) Urine Nitrate Negative (Negative) Urine Bilirubin Negative (Negative) Urine Urobilinogen 1.0 (<2.0) mg/dL Leukocyte Esterase Rfl Negative (Negative) PURVI/UL Urine RBC 3-5 H (0-2) /hpf Urine WBC 0-5 (0-3) /hpf Ur Squamous Epith Cells Few (Few) /hpf Urine Bacteria 1+ H /hpf Urine Casts 0-2 POC Urine HCG, Qual Negative (Negative) 24/25 Range/Units 23:52 WBC 13.8 H (4.5-10.0) K/mm3 RBC 3.91 L (4.2-5.4) M/mm3 Hgb 12.5 (12.0-15.0) g/dL Hct 35.9 L (37.0-47.0) % MCV 91.8 (80-100) fl MCH 32.0 (26-34) pg MCHC 34.8 (32-36) g/dl RDW 11.8 (11.5-14.5) % Plt Count 335 (150-375) k/mm3 MPV 9.8 (7.4-10.4) fl Immature Gran % (Auto) 0.4 (0-0.5) % Neut % (Auto) 68.5 (45.5-73.1) % Lymph % (Auto) 24.6 (18.3-44.2) % [place] % (Auto) 4.9 (2.6-8.5) % Eos % (Auto) 1.1 (0-4.4) % Baso % (Auto) 0.5 (0.2-1.2) % Lymph # (Auto) 3.40 H (0.9-3.2) K/mm3 [place] # (Auto) 0.7 H (0.1-0.6) K/mm3 Eos # (Auto) 0.2 (0-0.3) K/mm3 Baso # (Auto) 0.1 (0.0-0.1) K/mm3 Abs Immat Gran (auto) 0.05 H (0.00-0.031) K/mm3 Absolute Neuts (auto) 9.5 H (1.3-6.7) K/mm3 Absolute Nucleated RBC 0.000 (0.0-0.012) K/mm3 Nucleated RBC % 0.0 (0.0-0.2) % Sodium 134 (134-143) mmol/L Potassium 3.7 (3.4-5.0) mmol/L Chloride 104 (98-107) mmol/L Carbon Dioxide 23 (22-30) mmol/L Anion Gap 7 (4-12) mmol/L BUN 12 (8-21) mg/dL Creatinine 0.65 L (0.7-1.0) mg/dL Estim Creat Clear Calc 99 ml/min Estimated GFR > 60 (59 - ) Glucose 177 H (65-110) mg/dL POC Capillary Glucose (65-105) mg/dl Calcium 9.2 (8.9-10.7) mg/dL Total Bilirubin 0.3 (0.2-1.3) mg/dL AST 21 (14-36) U/L ALT 14 (6-35) U/L Alkaline Phosphatase 64 (45-116) U/L Total Protein 7.1 (6.3-8.6) g/dL Albumin 4.0 (3.7-5.6) g/dL Lipase 41 (23-300) U/L Urine Color (Yellow) Urine Appearance (Clear) Urine pH (5.0-9.0) Ur Specific [place] (1.001-1.035) Urine Protein (Negative) mg/dL Urine Glucose (UA) (Negative) mg/dL Urine Ketones (Negative) mg/dL Ur Blood (Man) (Negative) Urine Nitrate (Negative) Urine Bilirubin (Negative) Urine Urobilinogen (<2.0) mg/dL Leukocyte Esterase Rfl (Negative) PRUVI/UL Urine RBC (0-2) /hpf Urine WBC (0-3) /hpf Ur Squamous Epith Cells (Few) /hpf Urine Bacteria /hpf Urine Casts POC Urine HCG, Qual (Negative) <Olvin Chakraborty MD - Last Filed: 07/31/25 05:18> Imaging Data Attestation: I personally reviewed and interpreted this imaging study as follows: <Amina Rosario PA-C - Last Filed: 08/02/25 09:01> Radiologist's impression: ITS Impressions Abdomen/Pelvis CT 07/31/25 06:44 IMPRESSION: 1. 2.2 cm liver mass which may be benign or less likely malignant. Abdomen MRI without and with contrast is recommended. <Amina Rosario PA-C - Last Filed: 08/02/25 09:01> ITS Impressions Abdomen/Pelvis CT 07/31/25 06:44 IMPRESSION: 1. 2.2 cm liver mass which may be benign or less likely malignant. Abdomen MRI without and with contrast is recommended. <Olvin Chakraborty MD - Last Filed: 07/31/25 05:18> Discharge Plan Discharge Clinical Impression: Acute gastroenteritis, Liver lesion, left lobe <TAMMI Fischer Last Filed: 08/02/25 09:01> Patient Disposition: Home <TAMMI Fischer Last Filed: 08/02/25 09:01> Condition: Stable <TAMMI Fischer Last Filed: 08/02/25 09:01> Instructions: Antibiotic Form, Gastroenteritis (ED) <TAMMI Fischer Last Filed: 08/02/25 09:01> Additional Instructions: Take the antibiotics for the next 3 days and Zofran as needed for nausea, Bentyl as needed for abdominal cramping. No signs of any emergent or urgent concerns under labs or CT scan. Follow-up with your primary care provider and return with any worsening symptoms or new emergent concerns. Tylenol and ibuprofen for any fever or pains. <TAMMI Fischer Last Filed: 08/02/25 09:01> Patient Language: Persian <TAMMI Fischer Last Filed: 08/02/25 09:01> Prescriptions: New ciprofloxacin HCl 750 mg tablet 750 mg PO DAILY 3 Days Qty: 3 0RF dicyclomine 20 mg tablet 20 mg PO TID PRN (Reason: abdominal pain) Qty: 14 0RF ondansetron 4 mg tablet,disintegrating 4 mg PO Q8H PRN (Reason: nausea and vomiting) Qty: 20 0RF No Action cephalexin 500 mg capsule 500 mg PO Q12H Qty: 7 0RF Humalog U-100 Insulin 100 unit/mL cartridge Nexplanon 68 mg implant 1 implant subdermal ONCE Rx Instructions: as a single dose norgestimate-ethinyl estradiol [Sprintec (28)] 0.25-0.035 mg tablet 1 tablet PO DAILY Qty: 84 1RF <TAMMI Fischer Last Filed: 08/02/25 09:01> Follow-up/Referrals: PHYSICIAN,BENEFIT SPECIALIST [Primary Care Provider, Internal Medicine] <TAMMI Fischer Last Filed: 08/02/25 09:01> Time of Disposition: 04:11 <TAMMI Fischer Last Filed: 08/02/25 09:01> 04:11 <Olvin Chakraborty MD - Last Filed: 07/31/25 05:18>
[2025-07-30] MEDS: MORPHINE SULFATE (*CRX) 4 MG/ML INJ 2 MG IV PUSH (23:45)
[2025-07-30] MEDS: SODIUM CHLORIDE 0.9% IV 1,000 ML 999 ML IV CONT (23:47)
[2025-07-30] MEDS: ONDANSETRON INJ 4 MG/2 ML VIAL IV PUSH (23:47)
[2025-07-30 23:54] VITALS: BP 133/87; PULSE 81; RESP 14; O2SAT 100
[2025-07-30 23:55] VITALS: BP 133/87; O2SAT 100
[2025-07-31] VITALS (10 sets, daily range): BP systolic 118–142; BP diastolic 76–103; PULSE 76–82; RESP 14–18; O2SAT 98–100
[2025-07-31 00:04] LABS: Hematocrit 35.9 % (37.0-47.0); Hemoglobin 12.5 g/dL (12.0-15.0); Immature Granulocyte Percent A 0.4 % (0-0.5); Lymphocytes Absolute Auto 3.40 K/mm3 (0.9-3.2); Mean Corpuscular HGB Conc 34.8 g/dl (32-36); Mean Corpuscular Hemoglobin 32.0 pg (26-34); Mean Corpuscular Volume 91.8 fl (80-100); Nucleated Red Blood Cells Absolute Auto 0.000 K/mm3 (0.0-0.012); Nucleated Red Blood Cells Perc 0.0 % (0.0-0.2); Platelet Count Result 335 k/mm3 (150-375); Red Blood Count 3.91 M/mm3 (4.2-5.4); White Blood Count 13.8 K/mm3 (4.5-10.0)
[2025-07-31 00:16] LABS: Alanine Aminotransferase 14 U/L (6-35); Albumin Level 4.0 g/dL (3.7-5.6); Alkaline Phosphatase 64 U/L (45-116); Anion Gap 7 mmol/L (4-12); Aspartate Amino Transferase 21 U/L (14-36); Bilirubin,Total 0.3 mg/dL (0.2-1.3); Blood Urea Nitrogen 12 mg/dL (8-21); Calcium 9.2 mg/dL (8.9-10.7); Carbon Dioxide 23 mmol/L (22-30); Chloride 104 mmol/L (98-107); Estimated CRCL calculation 99 ml/min; Estimated Glomerular Filt Rate > 60; Glucose 177 mg/dL (65-110); Lipase 41 U/L (23-300); Potassium 3.7 mmol/L (3.4-5.0); Sodium 134 mmol/L (134-143); Total Protein 7.1 g/dL (6.3-8.6)
--- NOTE | 2025-07-31 03:14 | PC.NURSE ---
RN told pt and family toavoid
== END 2025-07-31 04:22 | disposition home or self-care (01) ==
PROVIDERS: Student in an Organized Health Care Education/Training Program; Emergency Provider Physician Assistant
DX: K52.9 Noninfective gastroenteritis and colitis, unspecified (principal); K76.9 Liver disease, unspecified; E10.9 Type 1 diabetes mellitus without complications; Z79.4 Long term (current) use of insulin; Z79.3 Long term (current) use of hormonal contraceptives
CPT/HCPCS: 36415; 74177; 80053; 81001; 81025; 82948; 83690; 85025; 96361; 96374; 96375; 99284; J2270; J2405; J7030; Q9967